=== PATIENT | female | born 1995 | race Caucasian/White ===

== ENCOUNTER 2019-04-25 17:59 | Inpatient (IN) ==
[2019-04-25] MEDS ORDERED: KETOROLAC TROMETHAMINE 15 MG/ML VIAL IV STA (18:05)
[2019-04-25] MEDS ORDERED: HYDROmorphone INJ 0.5 MG/0.5 ML SYR IV STA (18:05)
[2019-04-25] MEDS ORDERED: SODIUM CHLORIDE 0.9% 1000ML 2,000 ML IV ONE (18:05)
[2019-04-25] MEDS ORDERED: GI COCKTAIL ED USE PO ONE (18:05)
[2019-04-25] MEDS ORDERED: HYDROmorphone INJ 1 MG/ML SYRINGE ONE (18:21)
[2019-04-25 18:28] LABS: Basophils # (auto) 0.03 K/uL (0-0.2); Basophils % (auto) 0.4 %; Eosinophils # (auto) 0.14 K/uL (0-0.5); Eosinophils % (auto) 1.7 %; Hemoglobin 13.1 g/dL (12.0-16.0); Immature Granulocytes # (auto) 0.02 K/uL (0.00-0.02); Immature Granulocytes % (auto) 0.2 %; Lymphocytes # (auto) 1.43 K/uL (1.2-3.4); Lymphocytes % (auto) 16.9 %; Mean Corpuscular Hemoglobin 29.3 pg (25-34); Mean Corpuscular Hgb Conc 33.6 g/dL (32-36); Mean Corpuscular Volume 87.2 fL (80-100); Mean Platelet Volume 9.9 fL (7.4-10.4); Monocytes # (auto) 0.87 K/uL (0.11-0.59); Monocytes % (auto) 10.3 %; Neutrophils # (auto) 5.96 K/uL (1.4-6.5); Neutrophils % (auto) 70.5 %; Platelet Count 213 K/uL (130-400); RDW Coefficient of Variation 14.2 % (11.5-14.5); RDW Standard Deviation 45.5 fL (36.4-46.3); Red Blood Count 4.47 M/uL (4.2-5.4); White Blood Count 8.45 K/uL (4.8-10.8)
[2019-04-25 18:37] LABS: iSTAT Creatinine 0.6 mg/dl (0.6-1.3); iSTAT Hemoglobin 13.3 g/dl (12.0-16.0); iSTAT Ionized Calcium 1.15 mmol/l (1.12-1.32); iSTAT Potassium 3.7 mEq/L (3.3-5.0)
--- NOTE | 2019-04-25 18:42 | XRay Report ---
XR chest 1V portable CLINICAL HISTORY: Pain, radiating to the abdomen COMPARISON STUDY: No previous studies for comparison. FINDINGS: The cardiac and mediastinal contours are normal. There is no evidence of focal pulmonary co nsolidation. There is no evidence of failure. No pleural effusions are visualized.[No free intraperit clay[place] air is visualized IMPRESSION: No active disease in the chest. Electronically signed by: Bhaskar Harry M.D. 04/25/2019 6:41 PM
[2019-04-25 18:44] LABS: Albumin Level 3.4 gm/dl (3.4-5.0); BUN Creatinine Ratio 8.7 (10-20); Calcium 8.9 mg/dl (8.5-10.1); Est GFR (African American) 135.5; Est GFR (Non-African American) 116.9; Potassium 3.7 mmol/L (3.5-5.1)
[2019-04-25 18:47] LABS: Albumin Globulin Ratio 0.8 (0.9-2); Bilirubin,Total 0.2 mg/dl (0.2-1); Globulin 4.5 gm/dl (2.5-4.0); Total Protein 7.9 gm/dl (6.4-8.2)
[2019-04-25] MEDS ORDERED: IOVERSOL 100ml IV PRN (18:59)
--- NOTE | 2019-04-25 19:08 | CT Scan Report ---
CT abd pelvis IV con only CLINICAL HISTORY: Severe right-sided abdominal pain. COMPARISON STUDY: None. TECHNIQUE: Patient was scanned in a dynamic helical fashion during intravenous administration of 90 c c of Optiray 320 A dose lowering technique was utilized adhering to the principles of ALARA. CT DOSE: 747.89 mGy.cm FINDINGS: Lower chest: The heart is normal in size and configuration, without pericardial effusion. The lung ba ses and pleural spaces are clear. Liver: The contrast-enhanced liver is normal in size, contour, and attenuation. There is no intrahepa tic biliary ductal dilatation. The hepatic veins and portal veins are patent. Gallbladder: Unremarkable. Spleen: Normal in size and attenuation. Pancreas: Unremarkable. Adrenal glands: Unremarkable. Kidneys: There is symmetric renal cortical enhancement. The kidneys are normal in size without hydron ephrosis. Bowel: There is no evidence of acute diverticulitis. The appendix is surgically absent. There are bor derline dilated jejunal loops with a small bowel feces sign. A discrete transition zone is not visual ized however the mid small bowel is of normal caliber. The findings could represent ileus or low-grad e partial obstruction. Peritoneum: There is trace free pelvic fluid. There is no free intraperitoneal air. Vasculature: The abdominal aorta is normal in course and caliber. Adenopathy: None. Pelvic viscera: The right ovary appears mildly enlarged. Skeletal structures: No destructive osseous lesions are seen. IMPRESSION: 1. Mildly dilated proximal small bowel loops. A discrete transition is not identified. Diagnostic con siderations include an ileus or low-grade partial small bowel obstruction. Clinical follow-up is advo cated 2. Surgically absent appendix 3. Mild right ovarian enlargement Electronically signed by: Bhaskar Harry M.D. 04/25/2019 7:07 PM
[2019-04-25 19:18] LABS: Pregnancy Test, Serum Negative (Negative)
[2019-04-25] MEDS ORDERED: PIPERACILLIN/TAZOBACTAM 4.5 GM/120 ML BAG IV ONE (19:22)
[2019-04-25] MEDS ORDERED: PIPERACILL/TAZOBAC CONSULT ACTIVE PRN (19:22)
--- NOTE | 2019-04-25 19:44 | Emergency Department Note ---
Entered by German Hoffmann acting as a scribe for Delfin Edwards DO History of Present Illness General Chief complaint: Abdominal Pain Stated complaint: AB PAIN Time Seen by Provider: 04/25/19 18:00 Source: patient History of Present Illness Onset (ago): day(s) 2 Location: abdomen (right-sided) Pain Consistency: + other (worsening) Quality: + sharp Relieved By: not by none Exacerbated By: not by none Associated symptoms: + denies other symptoms (burning urination and vaginal bleeding), + cough, + shortness of breath and + other (runny nose) The patient is a 23 year-old white F w/ no PMHx who presents to the ED w/ CC of worsening right-sided abdominal pain beginning 2 days ago. The patient states that she was in the [facility] ED, 2 days ago, for her current symptoms. She describes her abdominal pain as sharp. She denies that anything makes her pain better or worse. She notes that at [facility], she was given pain medications and had a CAT scan an US done. She adds that the US and CAT scan were negative. She states that the reason she decided to come to [facility] today is due to not wanting to go back to [facility]. She notes that she is currently experiencing shortness of breath, a runny nose, and a cough. She denies experiencing burning urination and vaginal bleeding. She adds that her last menstrual cycle was 1 month ago due to previously being on BCP. She notes that she had a bowel movement last night. She denies any recent falls or trauma. Home Medications Home Medications Medication Instructions Recorded Confirmed Type dicyclomine 10 mg PO QID 04/25/19 04/25/19 History famotidine 20 mg PO BID 04/25/19 04/25/19 History Allergies Allergy/AdvReac Type Severity Reaction Status Date / Time No Known Allergies Allergy Unverified 04/25/19 18:58 Past Med/Surg History Social History Preferred Language: Upper Sorbian Communication Ability: Effective Naturopathic Physician Required: No Beliefs That Will Affect Care: None Current Living Situation: Parent Other Information That Helps Us Care for You: No Feels Safe at Home: Yes Safety Concerns: Feels Safe At This Time Smoking Status: Current every day smoker Tobacco Type: cigarettes and e- cigarettes ; Do You Dip or Chew Tobacco: No ; Second Hand Exposure: Yes ; Tobacco Cessation Education Requested by Patient: No Hx Alcohol Use: Yes Alcohol type: beer and hard liquor Review of Systems See HPI for pertinent positives & negatives. and A total of 10 systems reviewed and were otherwise negative Physical Exam Vital Signs Vital Signs - 24 hr 04/25/19 18:00 Temperature 38.0 C H Temperature Source Oral Sepsis Recent Fever Within 48 Hours No Sepsis New/Unexplained Change in Mental Status No Sepsis Action Taken by Nursing No Action Required Pulse Rate 93 H Pulse Rhythm Regular Respiratory Rate 20 Respiratory Effort / Characteristics Non-Labored Respiratory Depth Normal Respiratory Pattern Regular Blood Pressure 119/90 Blood Pressure Mean 99 Pulse Oximetry 97 Oxygen Delivery Method Room Air GENERAL: Sitting up in bed, in moderate distress, holding right mid abdomen. EYE EXAM: normal conjunctiva OROPHARYNX: no exudate, no erythema, lips, buccal mucosa, and tongue normal and mucous membranes are moist NECK: supple, no nuchal rigidity, no adenopathy, non-tender LUNGS: Clear to auscultation. Normal chest wall mechanics HEART: no murmurs, S1 normal and S2 normal ABDOMEN: abdomen soft, tenderness in right mid abdomen even with light touch, normo-active bowel sounds, no masses, no rebound or guarding. BACK: Back is symmetrical on inspection and there is no deformity, no midline tenderness, no CVA tenderness. SKIN: no rashes and no bruising UPPER EXTREMITIES: upper extremities are grossly normal. LOWER EXTREMITIES: No pitting edema. NEURO EXAM: Normal sensorium, cranial nerves II-XII grossly intact, normal speech, no gross weakness of arms, no gross weakness of legs. Course ED COURSE: Vital signs were reviewed and showed febrile and tachycardia. The patients medical record was reviewed The above diagnostic studies were performed and reviewed. ED treatments and interventions as stated above. 1800: The patient was evaluated in room C11B. A complete history and physical examination was performed. 1914: Upon reevaluation, the patient is doing no better. I discussed my findings with the patient and she understands and agrees with the treatment plan. 1920: I reviewed the patient's case with Dr. Colby Reed, General [place]. He states that he will follow up with the patient. 1927: I reviewed the patient's case with Dr. Michael Pillai, [facility] Hospitalist. He will evaluate the patient for further management. Based on the patients age, coexisting illnesses, exam and lab findings the decision to treat as an inpatient was made. The patient remained stable while under my care. The patient will be evaluated for further management. Consultations Consultation #1: I reviewed the patient's case with Dr. Colby Reed, General [place]. He states that he will follow up with the patient. Time: 19:21 Consultation #2: I reviewed the patient's case with Dr. Michael Pillai, [facility] Hospitalist. He will evaluate the patient for further management. Time: 19:28 Administered Medications Acetaminophen (Tylenol) 650 mg PO Q4H PRN PRN Reason: pain/fever Stop: 05/25/19 22:04 Last Admin: 04/26/19 00:51 Dose: 650 mg Documented by: [id number] Diclofenac Sodium (Voltaren 1% Top) 1 appln EXT BID PRN PRN Reason: Pain Stop: 05/25/19 20:59 Last Admin: 04/25/19 20:27 Dose: 1 appln Documented by: [id number] Lactated Ringer's (Lr) 1,000 mls @ 120 mls/hr IV .Q8H20M LILLIANA Stop: 05/25/19 22:04 Last Admin: 04/25/19 22:24 Dose: 120 mls/hr Documented by: [id number] Ketorolac Tromethamine (Toradol) 15 mg IV Q6H PRN PRN Reason: Pain Stop: 04/30/19 22:04 Last Admin: 04/25/19 22:41 Dose: 15 mg Documented by: [id number] Valacyclovir HCl (Valtrex) 1,000 mg PO TID LILLIANA Stop: 05/02/19 22:04 Last Admin: 04/25/19 23:48 Dose: 1,000 mg Documented by: [id number] Discontinued Medications Al Hydrox/Mg Hydrox/Simethicone () 1 dose PO ONE ONE Stop: 04/25/19 18:06 Last Admin: 04/25/19 18:27 Dose: 1 dose Documented by: [id number] Hydromorphone HCl (Dilaudid) 1 mg IV NOW STA Stop: 04/25/19 18:06 Last Admin: 04/25/19 18:28 Dose: Not Given Documented by: [id number] Hydromorphone HCl (Dilaudid) Confirm Administered Dose 1 mg .ROUTE .STK-MED ONE Stop: 04/25/19 18:22 Last Admin: 04/25/19 18:27 Dose: 1 mg Documented by: [id number] Sodium Chloride (Nss 1000ml) 2,000 mls @ 999 mls/hr IV .Q2H1M ONE Stop: 04/25/19 20:05 Last Infusion: 04/25/19 22:14 Dose: 0 mls/hr Documented by: [id number] Admin: 04/25/19 18:27 Dose: 999 mls/hr Documented by: [id number] Piperacillin Sod/Tazobactam Sod (Zosyn) 4.5 gm in 120 mls @ 240 mls/hr IV NOW ONE Stop: 04/25/19 19:51 Last Infusion: 04/25/19 20:57 Dose: 0 mls/hr Documented by: [id number] Admin: 04/25/19 20:27 Dose: 240 mls/hr Documented by: [id number] Ioversol (Optiray 320 100ml) 90 ml IV ONCE PRN PRN Reason: Interaction Checking Stop: 04/29/19 18:58 Last Admin: 04/25/19 19:00 Dose: 90 ml Documented by: [id number] Ketorolac Tromethamine (Toradol) 15 mg IV NOW STA Stop: 04/25/19 18:06 Last Admin: 04/25/19 18:27 Dose: 15 mg Documented by: [id number] Medical Decision Making Differential Diagnosis Differential diagnoses includes but is not limited to gastritis, peptic ulcer disease, GERD, gallbladder disease, pancreatitis, small bowel obstruction, acute coronary syndrome, pericarditis, ischemic bowel, irritable bowel disease, irritable bowel syndrome, appendicitis, diverticulitis, malignancy, hernia, urinary tract infection, torsion, /ectopic (if female), perforation, trauma, infectious. Medical Records Attestation: I reviewed the patient's medical records. Home Medications Current Medication List: was personally reviewed by me Laboratory Data Attestation: I reviewed the patient's lab results. Result diagrams: 04/25/19 18:20 04/25/19 18:20 Lab Results 04/25/19 04/25/19 04/25/19 Range/Units 18:20 18:20 18:25 WBC 8.45 (4.8-10.8) K/uL RBC 4.47 (4.2-5.4) M/uL Hgb 13.1 (12.0-16.0) g/dL POC Hgb 13.3 (12.0-16.0) g/dl Hct 39.0 (37-47) % POC Hct 39 (37-47) % MCV 87.2 (80-100) fL MCH 29.3 (25-34) pg MCHC 33.6 (32-36) g/dL RDW Std Deviation 45.5 (36.4-46.3) fL RDW Coeff of Kamila 14.2 (11.5-14.5) % Plt Count 213 (130-400) K/uL MPV 9.9 (7.4-10.4) fL Immature Gran % (Auto) 0.2 % Neut % (Auto) 70.5 % Lymph % (Auto) 16.9 % [place] % (Auto) 10.3 % Eos % (Auto) 1.7 % Baso % (Auto) 0.4 % Immature Gran # (Auto) 0.02 (0.00-0.02) K/uL Neut # (Auto) 5.96 (1.4-6.5) K/uL Lymph # (Auto) 1.43 (1.2-3.4) K/uL [place] # (Auto) 0.87 H (0.11-0.59) K/uL Eos # (Auto) 0.14 (0-0.5) K/uL Baso # (Auto) 0.03 (0-0.2) K/uL POC Sodium 138 (135-144) mEq/L Sodium 138 (136-145) mmol/L POC Potassium 3.7 (3.3-5.0) mEq/L Potassium 3.7 (3.5-5.1) mmol/L POC Chloride 103 (101-112) mEq/L Chloride 108 H (98-107) mmol/L Carbon Dioxide 24 (21-32) mmol/L POC Total CO2 22 L (24-31) mEq/l Anion Gap 6.0 (3-11) POC Anion Gap 18.0 (16-25) mmol/L POC BUN 4 L (7-18) mg/dl BUN 6 L (7-18) mg/dl Creatinine 0.73 (0.6-1.2) mg/dl POC Creatinine 0.6 (0.6-1.3) mg/dl Est Cr Clr Drug Dosing 125.0 ml/min Est GFR ( Amer) 135.5 Est GFR (Non-Af Amer) 116.9 BUN/Creatinine Ratio 8.7 L (10-20) Glucose 107 H (70-99) mg/dl POC Glucose (other) 108 H (70-99) mg/dl Calcium 8.9 (8.5-10.1) mg/dl POC Ioniz Calcium [place] 1.15 (1.12-1.32) mmol/l Total Bilirubin 0.2 (0.2-1) mg/dl AST 19 (15-37) U/L ALT 24 (12-78) U/L Alkaline Phosphatase 97 (45-117) U/L Total Protein 7.9 (6.4-8.2) gm/dl Albumin 3.4 (3.4-5.0) gm/dl Globulin 4.5 H (2.5-4.0) gm/dl Albumin/Globulin Ratio 0.8 L (0.9-2) Lipase 108 (73-393) U/L HCG, Qual (Negative) Urine Color Urine Appearance (Clear) Urine pH (4.5-7.5) Ur Specific [place] (1.000-1.030) Urine Protein (Negative) Urine Glucose (UA) (Negative) Urine Ketones (Negative) Urine Blood (Negative) Urine Nitrite (Negative) Urine Bilirubin (Negative) Urine Urobilinogen (Negative) Ur Leukocyte Esterase (Negative) 04/25/19 04/25/19 Range/Units 18:25 19:40 WBC (4.8-10.8) K/uL RBC (4.2-5.4) M/uL Hgb (12.0-16.0) g/dL POC Hgb (12.0-16.0) g/dl Hct (37-47) % POC Hct (37-47) % MCV (80-100) fL MCH (25-34) pg MCHC (32-36) g/dL RDW Std Deviation (36.4-46.3) fL RDW Coeff of Kamila (11.5-14.5) % Plt Count (130-400) K/uL MPV (7.4-10.4) fL Immature Gran % (Auto) % Neut % (Auto) % Lymph % (Auto) % [place] % (Auto) % Eos % (Auto) % Baso % (Auto) % Immature Gran # (Auto) (0.00-0.02) K/uL Neut # (Auto) (1.4-6.5) K/uL Lymph # (Auto) (1.2-3.4) K/uL [place] # (Auto) (0.11-0.59) K/uL Eos # (Auto) (0-0.5) K/uL Baso # (Auto) (0-0.2) K/uL POC Sodium (135-144) mEq/L Sodium (136-145) mmol/L POC Potassium (3.3-5.0) mEq/L Potassium (3.5-5.1) mmol/L POC Chloride (101-112) mEq/L Chloride (98-107) mmol/L Carbon Dioxide (21-32) mmol/L POC Total CO2 (24-31) mEq/l Anion Gap (3-11) POC Anion Gap (16-25) mmol/L POC BUN (7-18) mg/dl BUN (7-18) mg/dl Creatinine (0.6-1.2) mg/dl POC Creatinine (0.6-1.3) mg/dl Est Cr Clr Drug Dosing ml/min Est GFR ( Amer) Est GFR (Non-Af Amer) BUN/Creatinine Ratio (10-20) Glucose (70-99) mg/dl POC Glucose (other) (70-99) mg/dl Calcium (8.5-10.1) mg/dl POC Ioniz Calcium [place] (1.12-1.32) mmol/l Total Bilirubin (0.2-1) mg/dl AST (15-37) U/L ALT (12-78) U/L Alkaline Phosphatase (45-117) U/L Total Protein (6.4-8.2) gm/dl Albumin (3.4-5.0) gm/dl Globulin (2.5-4.0) gm/dl Albumin/Globulin Ratio (0.9-2) Lipase (73-393) U/L HCG, Qual Negative (Negative) Urine Color Yellow Urine Appearance Clear (Clear) Urine pH 7.0 (4.5-7.5) Ur Specific [place] <= 1.005 (1.000-1.030) Urine Protein Negative (Negative) Urine Glucose (UA) Negative (Negative) Urine Ketones Negative (Negative) Urine Blood Negative (Negative) Urine Nitrite Negative (Negative) Urine Bilirubin Negative (Negative) Urine Urobilinogen Negative (Negative) Ur Leukocyte Esterase Negative (Negative) Imaging Data Radiologist's Impression: Radiology results as stated below per my review and the radiologist's interpretation: CT abd pelvis IV con only CLINICAL HISTORY: Severe right-sided abdominal pain. COMPARISON STUDY: None. TECHNIQUE: Patient was scanned in a dynamic helical fashion during intravenous administration of 90 cc of Optiray 320 A dose lowering technique was utilized adhering to the principles of ALARA. CT DOSE: 747.89 mGy.cm FINDINGS: Lower chest: The heart is normal in size and configuration, without pericardial effusion. The lung bases and pleural spaces are clear. Liver: The contrast-enhanced liver is normal in size, contour, and attenuation. There is no intrahepatic biliary ductal dilatation. The hepatic veins and portal veins are patent. Gallbladder: Unremarkable. Spleen: Normal in size and attenuation. Pancreas: Unremarkable. Adrenal glands: Unremarkable. Kidneys: There is symmetric renal cortical enhancement. The kidneys are normal in size without hydronephrosis. Bowel: There is no evidence of acute diverticulitis. The appendix is surgically absent. There are borderline dilated jejunal loops with a small bowel feces sign. A discrete transition zone is not visualized however the mid small bowel is of normal caliber. The findings could represent ileus or low-grade partial o bstruction. Peritoneum: There is trace free pelvic fluid. There is no free intraperitoneal air. Vasculature: The abdominal aorta is normal in course and caliber. Adenopathy: None. Pelvic viscera: The right ovary appears mildly enlarged. Skeletal structures: No destructive osseous lesions are seen. IMPRESSION: 1. Mildly dilated proximal small bowel loops. A discrete transition is not identified. Diagnostic considerations include an ileus or low-grade partial small bowel obstruction. Clinical follow-up is advocated 2. Surgically absent appendix 3. Mild right ovarian enlargement Electronically signed by: Bhaskar Harry M.D. 04/25/2019 7:07 PM XR chest 1V portable CLINICAL HISTORY: Pain, radiating to the abdomen COMPARISON STUDY: No previous studies for comparison. FINDINGS: The cardiac and mediastinal contours are normal. There is no evidence of focal pulmonary consolidation. There is no evidence of failure. No pleural effusions are visualized.[No free intraperitoneal air is visualized IMPRESSION: No active disease in the chest. Electronically signed by: Bhaskar Harry M.D. 04/25/2019 6:41 PM ECG Data Attestation: I personally reviewed and interpreted this ECG as follows: Indication: abdominal pain Rate (beats per minute): 101 Rhythm: sinus tachycardia Findings: + other (normal axis, poor baseline); no PVC Blood Pressure Blood Pressure Findings: Elevated blood pressure Blood Pressure Disposition: further management by hospitalist MDM Narrative Patient is a 23-year-old female who presents the ER for right upper quadrant abdominal pain which is been present for the past 2 days. She notes it has been gradually worsening. IV was established blood work was obtained and showed no significant leukocytosis or anemia. BMP with LFTs bilirubin and lipase was unremarkable. hCG was negative. CT abdomen pelvis shows questionable early small bowel obstruction. Uncertain if this is small bowel versus gas troenteritis versus cholecystitis although unlikely with a negative CT. Patient was given IV fluids and IV narcotics along with IV Zofran. She had significant improvement of her pain. Patient was discussed with hospitalist and general surgery. Patient and family were updated bedside. Patient was given a dose of IV antibiotics prophylactically with a fever with questionable small bowel obstruction and admitted for further work-up. Impression & Plan SBO (small bowel obstruction), Abdominal pain, Fever Discharge Plan Visit Data *Final* Discharge Date/Time: 04/25/19 21:39 Chief Complaint: Abdominal Pain Stated Complaint: AB PAIN ED Provider: Delfin Edwards Discharge Problem: SBO (small bowel obstruction), Abdominal pain, Fever Patient Disposition: Admitted As Inpatient Discharge Instructions Interventions: ED Discharge Assessment Last Done: 04/25/19 21:39 Discharge Problem: Abdominal pain Qualifiers: Abdominal location: unspecified location Qualified Code(s): R10.9 - Unspecified abdominal pain Fever Qualifiers: Fever type: unspecified Qualified Code(s): R50.9 - Fever, unspecified The scribe's documentation has been prepared under my direction and personally reviewed by me in its entirety. I confirm that the note above accurately reflects all work, treatment, procedures, and medical decision making performed by me.
[2019-04-25] MEDS ORDERED: DICLOFENAC SOD 1% GEL 100 GM TUBE EXT PRN (19:51)
--- NOTE | 2019-04-25 20:01 | History & Physical Report ---
Date of Service April 25, 2019 Assessment & Plan (1) Abdominal pain: Jessica is a 23-year-old female with no significant past medical history who presented to [facility] due to a 5-day history of intermittent abdominal pain. ED Course: Received 2 L normal saline bolus, 15 mg IV Toradol, 1 mg IV Dilaudid, GI cocktail, and 4.5 g of IV Zosyn -admit to med/surg -Records from [facility] reviewed (from ER visit for the same complaint on 04/23/19). Pt had a normal CT of abdomen and pelvis, normal CTA and normal right upper quadrant ultrasound. Patient was discharged home with Bentyl and Pepcid, which she states did not improve her pain -CT abdomen & pelvis today revealed dilated proximal small bowel loops consider ileus or low-grade partial small bowel obstruction -> unlikely to be the cause of her pain, given the patient has had no vomiting or changes in bowel habit -> will keep NPO except sips/chips and meds until definitive cause of abdominal pain has been identified -> Maintenance LR at 120mls/hr ordered while NPO -> continue to monitor -Abdomen is exquisitely tender to light touch. Examination not consistent with surgical abdomen. -Normal laboratory results, including normal white cell count, normal electrolytes, liver function tests and lipase. Negative test. -Ultrasound of gallbladder was normal -if patient has persistent right upper quadrant pain, can consider HIDA scan. Will hold off on ordering this for now given normal LFTs and negative Byrne sign -Suspect abdominal pain is related to shingles precipitated by viral URI, given hyperesthesia of right side of abdomen -start Valtrex 1000mg tid x 7 days -pain regimen to include voltaren gel to the affected area, prn tylenol and toradol -monitor for rash Fever -Febrile to 38 C in the emergency department, all other vitals are within normal limits -Normal white cell count, normal chest x-ray, UA pending but no urinary symptoms, CT abdomen pelvis without any infectious causes -Suspect fever related to viral URI vs. Shingles -Patient received 1 dose of IV Zosyn in the emergency department, will hold off on further antibiotic administration Tobacco Abuse -encourage smoking cessation CODE STATUS: Full DVT prophylaxis: Low risk, encourage ambulation Disposition: Admitted to med/surg (2) Fever: History of Present Illness Chief Complaint: Abdominal Pain Primary Care Provider: NO PCP Jessica is a 23-year-old female with no significant past medical history who presented to [facility] due to a 5-day history of intermittent abdominal pain. She states that this pain started suddenly Saturday night around 9 PM, when she bent down to pickle processor her cell phone from the floor. She states that since then, she has had waves of pain in the right side of abdomen. She describes the pain as sharp, 10 out of 10 in intensity, so severe that it results in her feeling like she has chills. She also becomes nauseous and dizzy with the pain. She states that she can have 3 to 4 minutes of relief between episodes of pain. She also endorses URI symptoms that began the same day. She states that she has nasal congestion, a productive cough, and generalized myalgias. Yesterday, she states that she did not have any pain, however it returned last night. She states that an episode of coughing brought it on. She denies having any history of this type of pain in the past. Prior to Saturday, she had been feeling well. She denies any episodes of vomiting. She states that her last bowel movement was last night, and was normal. She has had chickenpox in the past. She is up-to-date with her immunizations. Her mother has had shingles in the past, however this was 11 years ago. She has had no contact with any person with shingles. Past medical history: Nil of note Past surgical history: Appendectomy, due to ruptured appendix Medications: vitamin Allergies: No known drug allergies Family history: Mother w/hx of cholecystectomy Social history: Has been smoking up to half a pack of cigarettes a day since age 17. Drinks alcohol occasionally, last drink was 2 beers last night. No recent alcohol binges. No recreational drug use. Allergies Allergy/AdvReac Type Severity Reaction Status Date / Time No Known Allergies Allergy Unverified 04/25/19 18:58 Home Medications Home Medications Medication Instructions Recorded Confirmed Type dicyclomine 10 mg PO QID 04/25/19 04/25/19 History famotidine 20 mg PO BID 04/25/19 04/25/19 History Past Med/Surg History Medical History Migraine No pertinent past medical history Family History Other No significant family history Social History Preferred Language: Martiniquais Communication Ability: Effective Transitional Care Manager Required: No Beliefs That Will Affect Care: None Current Living Situation: Parent Other Information That Helps Us Care for You: No Feels Safe at Home: Yes Safety Concerns: Feels Safe At This Time Smoking Status: Current every day smoker Tobacco Type: cigarettes and e- cigarettes ; Do You Dip or Chew Tobacco: No ; Second Hand Exposure: Yes ; Tobacco Cessation Education Requested by Patient: No Hx Alcohol Use: Yes Alcohol type: beer and hard liquor Review of Systems Constitutional: + fever, + chills, + body aches, + fatigue and + anorexia Ear, Nose, Mouth, Throat: + dizziness and + nasal congestion; no ear pain and no sore throat Respiratory: + cough and + chest congestion; no dyspnea and no wheezing Cardiovascular: no chest pain, no dyspnea on exertion, no palpitations, no edema and no calf pain Gastrointestinal: + abdominal pain and + nausea; no vomiting and no change in bowel habits Genitourinary: no dysuria, no urinary frequency and no urinary urgency Musculoskeletal: + body aches; no back pain, no neck pain and no joint pain Integumentary: no rash, no lesions and no change in skin color Physical Exam Constitutional: WD/WN, vitals as above cooperative and + in distress (Appears tearful due to pain) Eyes: PERRL, conjunctivae normal, anicteric sclerae Respiratory: normal respiratory effort, lungs clear to auscultation Cardiovascular: RRR, no murmur, no edema Gastrointestinal (Abdomen): Inspection/Auscultation: abdomen normal to inspection Percussion/Palpation: + abdomen tender (Tender to palpation of the right side of abdomen, extremely tender, even with light touch) and abdomen soft; no guarding and abdomen not rigid Abdomen is warm to touch, in a bandlike distribution over the right side of the abdomen. No erythema of the skin, or rashes noted. Skin: no rashes, warm and dry Neurologic: 5/5 power in upper and lower extremities Results & Data Vital Signs (Past 12 Hours) Vital Signs Temp Pulse Resp BP Pulse Ox 04/25/19 18:00 38.0 C H 93 H 20 119/90 97 Supervising Physician Co-Signing Physician Notes Attending addendum: I have physically seen this patient, have supervised the medical residents activities, and agree with the H&P unless as otherwise noted. Assessment and Plan: Right upper quadrant pain- Hyperesthesia. Imaging studies including CT and ultrasound negative for gallbladder dysfunction. Symptoms more suggestive of pre-herpetic neuralgia. Trial of Voltaren gel topically. Valtrex 1000 mg p.o. 3 times daily x7 days. Monitor for rash. Toradol 30 mg IV every 6 hours as needed for moderate pain. Do not see any further need for antibiotics. Patient did receive Zosyn x1 in the ED. Remainder of orders and notations as noted. PG Care Time/CCT Total # of Minutes Spent Total Time Spent with Patient: Total time spent is greater than 50% in coordination of care (as documented) at patient's floor/unit and/or counseling patient: Resident Activity Tracking Resident Involvement: Resident Care Provided Care Provided: Adult Hospital Medicine (1) Fever Fever type: unspecified Qualified Code(s): R50.9 - Fever, unspecified (2) Abdominal pain Abdominal location: unspecified location Qualified Code(s): R10.9 - Unspecified abdominal pain
--- NOTE | 2019-04-25 20:26 | Ultrasound Report ---
Biliary ultrasound CLINICAL HISTORY: ruq abd pain COMPARISON STUDY: CT scan dated 04/25/2009 FINDINGS: The liver appears sonographically normal. The pancreas appears normal as visualized. A port ion of the head is obscured due to gas shadowing. The gallbladder appears sonographically normal. The re is no ductal dilatation. The common bile duct measures 2 mm. There is no right-sided hydronephrosi s. IMPRESSION: Normal biliary ultrasound Electronically signed by: Bhaskar Harry M.D. 04/25/2019 8:25 PM
[2019-04-25 21:26] LABS: Appearance Urine Clear (Clear); Bilirubin Urine Negative (Negative); Blood Urine Negative (Negative); Color Urine Yellow; Glucose Urine UA Negative (Negative); Ketones Urine Negative (Negative); Leukocyte Esterase Urine Negative (Negative); Nitrite Urine Negative (Negative); Protein Urine Negative (Negative); Specific Gravity Urine <= 1.005 (1.000-1.030); Urobilinogen Urine Negative (Negative)
[2019-04-25] MEDS ORDERED: ONDANSETRON INJ 2 MG/ML 2 ML VIAL IV PRN (22:05)
[2019-04-25] MEDS: LACTATED RINGER'S 1,000 ML IV SCH (22:24)
[2019-04-25] MEDS: KETOROLAC TROMETHAMINE 15 MG/ML VIAL IV PRN (22:41)
[2019-04-25] MEDS: VALACYCLOVIR HCL 500 MG TABLET PO SCH (23:48)
[2019-04-26] MEDS: ACETAMINOPHEN 325 MG TAB PO PRN ×2 (00:51→13:26)
[2019-04-26] MEDS: KETOROLAC TROMETHAMINE 15 MG/ML VIAL IV PRN ×3 (05:22→20:53)
[2019-04-26] MEDS: LACTATED RINGER'S 1,000 ML IV SCH ×3 (06:21→23:06)
[2019-04-26] MEDS: VALACYCLOVIR HCL 500 MG TABLET PO SCH ×3 (07:17→20:51)
[2019-04-26 07:31] LABS: Basophils # (auto) 0.03 K/uL (0-0.2); Basophils % (auto) 0.5 %; Eosinophils # (auto) 0.16 K/uL (0-0.5); Eosinophils % (auto) 2.8 %; Hemoglobin 11.4 g/dL (12.0-16.0); Immature Granulocytes # (auto) 0.01 K/uL (0.00-0.02); Immature Granulocytes % (auto) 0.2 %; Lymphocytes # (auto) 1.66 K/uL (1.2-3.4); Lymphocytes % (auto) 28.6 %; Mean Corpuscular Hemoglobin 29.3 pg (25-34); Mean Corpuscular Hgb Conc 32.6 g/dL (32-36); Mean Platelet Volume 9.9 fL (7.4-10.4); Monocytes # (auto) 0.98 K/uL (0.11-0.59); Monocytes % (auto) 16.9 %; Neutrophils # (auto) 2.97 K/uL (1.4-6.5); Platelet Count 163 K/uL (130-400); RDW Coefficient of Variation 14.6 % (11.5-14.5); RDW Standard Deviation 48.4 fL (36.4-46.3); Red Blood Count 3.89 M/uL (4.2-5.4); White Blood Count 5.81 K/uL (4.8-10.8)
[2019-04-26 08:08] LABS: BUN Creatinine Ratio 9.3 (10-20); Creatinine Clr Calc Pharmacy 137.9 ml/min; Est GFR (African American) 144.6; Est GFR (Non-African American) 124.8; Potassium 3.9 mmol/L (3.5-5.1)
--- NOTE | 2019-04-26 11:36 | Family Medicine Progress Note ---
Date of Service April 26, 2019 Assessment & Plan (1) Abdominal pain: 23-year-old female was admitted on 25 April 2019 for intermittent abdominal pain. Abdominal pain, fever: Beginning around 03Sep. Multiple CT scans and a RUQ u/s only suggestive of ileus versus low-grade partial SBO, although she has not had any vomiting or constipation. Prior history of appendectomy. Briefly febrile but normal blood + urine labs. Question of early shingles (and PMH chickenpox), so was started on Valtrex 1 gm TID. However, no rash has ever been seen and the pain does not radiate into the flank. May be MSK in nature. Consult GI Mild right ovarian enlargement: As noted on her CT a/p. Admit blood hCG negative. Patient notes she may have had ovarian cyst in the past. Her lack of subjective and objective adenexal symptoms makes torsion less likely. Could consider pelvic ultrasound if symptom pattern changes. Tobacco use: Continue to encourage cessation. Code status: Full code. Diet: N.p.o. initially. DVT prophy: Lovenox. PT/OT: Deferred. Disbo: Admitted for observation to [facility]. (2) Ovarian enlargement, right: (3) Tobacco use: Supervising Physician Co-Signing Physician Notes Resident Physician Supervision Note: I independently interviewed and examined the patient and verified the cabrera history and physical, reviewed labs and image studies, discussed the case with the resident Dr. Torres and agree with the findings and care plan. Subjective Found patient resting in her bed. We reviewed her HPI events as per the H&P. She says in general over the past 5-6 days she will have a few minutes worth of near resolution of her pain for just to return quickly. For example, this morning she notes episodes of severe, stabbing pain in the right upper quadrant that is non-radiating. Says she feels little nauseous with this but has never had any emesis. Continues to have normal non-bloody bowel movements. Last period was about a month ago but that she has irregular periods. Denies any current vaginal bleeding or pelvic pain. She notes the Toradol and Tylenol here seems to help a little bit. No noted overnight acute events or new symptomatic concerns. Review of Systems Review of Systems: ROS per HPI. Physical Exam Physical Exam: General Appearance: Awake, alert & oriented, appears generally uncomfortable particularly with any movement, but does not appear in immediate distress. CV: +S1S2 regular bradycardia, no murmur. Pulm: Clear to auscultation throughout. Abdomen: +BS, soft, non-distended. Quite focal tenderness in the right upper quadrant, less so epigastrically. No tenderness in the bilateral lower quadrants or adnexal regions. Extremities: No pedal edema or calf tenderness. Moving all extremities naturally and easily. Neuro: No gross neuro deficits. Results & Data Vital Signs (Past 12 Hours) Vital Signs Temp Pulse Resp BP BP Pulse Ox 04/26/19 07:28 36.5 C 52 L 18 110/77 96 04/26/19 03:07 36.5 C 42 L 19 96 04/26/19 00:55 119/75 04/26/19 00:40 36.5 C 71 20 83/45 L 83/50 L 98 Laboratory Results 04/26/19 04/26/19 04/25/19 Range/Units 07:04 07:04 19:40 WBC 5.81 (4.8-10.8) K/uL RBC 3.89 L (4.2-5.4) M/uL Hgb 11.4 L (12.0-16.0) g/dL POC Hgb (12.0-16.0) g/dl Hct 35.0 L (37-47) % POC Hct (37-47) % MCV 90.0 (80-100) fL MCH 29.3 (25-34) pg MCHC 32.6 (32-36) g/dL RDW Std Deviation 48.4 H (36.4-46.3) fL RDW Coeff of Kamila 14.6 H (11.5-14.5) % Plt Count 163 (130-400) K/uL MPV 9.9 (7.4-10.4) fL Immature Gran % (Auto) 0.2 % Neut % (Auto) 51.0 % Lymph % (Auto) 28.6 % Overton % (Auto) 16.9 % Eos % (Auto) 2.8 % Baso % (Auto) 0.5 % Immature Gran # (Auto) 0.01 (0.00-0.02) K/uL Neut # (Auto) 2.97 (1.4-6.5) K/uL Lymph # (Auto) 1.66 (1.2-3.4) K/uL Overton # (Auto) 0.98 H (0.11-0.59) K/uL Eos # (Auto) 0.16 (0-0.5) K/uL Baso # (Auto) 0.03 (0-0.2) K/uL POC Sodium (135-144) mEq/L Sodium 142 (136-145) mmol/L POC Potassium (3.3-5.0) mEq/L Potassium 3.9 (3.5-5.1) mmol/L POC Chloride (101-112) mEq/L Chloride 112 H (98-107) mmol/L Carbon Dioxide 28 (21-32) mmol/L POC Total CO2 (24-31) mEq/l Anion Gap 2.0 L (3-11) POC Anion Gap (16-25) mmol/L POC BUN (7-18) mg/dl BUN 6 L (7-18) mg/dl Creatinine 0.67 (0.6-1.2) mg/dl POC Creatinine (0.6-1.3) mg/dl Est Cr Clr Drug Dosing 137.9 ml/min Est GFR ( Amer) 144.6 Est GFR (Non-Af Amer) 124.8 BUN/Creatinine Ratio 9.3 L (10-20) Glucose 84 (70-99) mg/dl POC Glucose (other) (70-99) mg/dl Calcium 8.0 L (8.5-10.1) mg/dl POC Ioniz Calcium Socorro (1.12-1.32) mmol/l Total Bilirubin (0.2-1) mg/dl AST (15-37) U/L ALT (12-78) U/L Alkaline Phosphatase (45-117) U/L Total Protein (6.4-8.2) gm/dl Albumin (3.4-5.0) gm/dl Globulin (2.5-4.0) gm/dl Albumin/Globulin Ratio (0.9-2) Lipase (73-393) U/L HCG, Qual (Negative) Urine Color Yellow Urine Appearance Clear (Clear) Urine pH 7.0 (4.5-7.5) Ur Specific Remington <= 1.005 (1.000-1.030) Urine Protein Negative (Negative) Urine Glucose (UA) Negative (Negative) Urine Ketones Negative (Negative) Urine Blood Negative (Negative) Urine Nitrite Negative (Negative) Urine Bilirubin Negative (Negative) Urine Urobilinogen Negative (Negative) Ur Leukocyte Esterase Negative (Negative) 04/25/19 04/25/19 04/25/19 Range/Units 18:25 18:25 18:20 WBC (4.8-10.8) K/uL RBC (4.2-5.4) M/uL Hgb (12.0-16.0) g/dL POC Hgb 13.3 (12.0-16.0) g/dl Hct (37-47) % POC Hct 39 (37-47) % MCV (80-100) fL MCH (25-34) pg MCHC (32-36) g/dL RDW Std Deviation (36.4-46.3) fL RDW Coeff of Kamila (11.5-14.5) % Plt Count (130-400) K/uL MPV (7.4-10.4) fL Immature Gran % (Auto) % Neut % (Auto) % Lymph % (Auto) % Overton % (Auto) % Eos % (Auto) % Baso % (Auto) % Immature Gran # (Auto) (0.00-0.02) K/uL Neut # (Auto) (1.4-6.5) K/uL Lymph # (Auto) (1.2-3.4) K/uL Overton # (Auto) (0.11-0.59) K/uL Eos # (Auto) (0-0.5) K/uL Baso # (Auto) (0-0.2) K/uL POC Sodium 138 (135-144) mEq/L Sodium 138 (136-145) mmol/L POC Potassium 3.7 (3.3-5.0) mEq/L Potassium 3.7 (3.5-5.1) mmol/L POC Chloride 103 (101-112) mEq/L Chloride 108 H (98-107) mmol/L Carbon Dioxide 24 (21-32) mmol/L POC Total CO2 22 L (24-31) mEq/l Anion Gap 6.0 (3-11) POC Anion Gap 18.0 (16-25) mmol/L POC BUN 4 L (7-18) mg/dl BUN 6 L (7-18) mg/dl Creatinine 0.73 (0.6-1.2) mg/dl POC Creatinine 0.6 (0.6-1.3) mg/dl Est Cr Clr Drug Dosing 125.0 ml/min Est GFR ( Amer) 135.5 Est GFR (Non-Af Amer) 116.9 BUN/Creatinine Ratio 8.7 L (10-20) Glucose 107 H (70-99) mg/dl POC Glucose (other) 108 H (70-99) mg/dl Calcium 8.9 (8.5-10.1) mg/dl POC Ioniz Calcium Socorro 1.15 (1.12-1.32) mmol/l Total Bilirubin 0.2 (0.2-1) mg/dl AST 19 (15-37) U/L ALT 24 (12-78) U/L Alkaline Phosphatase 97 (45-117) U/L Total Protein 7.9 (6.4-8.2) gm/dl Albumin 3.4 (3.4-5.0) gm/dl Globulin 4.5 H (2.5-4.0) gm/dl Albumin/Globulin Ratio 0.8 L (0.9-2) Lipase 108 (73-393) U/L HCG, Qual Negative (Negative) Urine Color Urine Appearance (Clear) Urine pH (4.5-7.5) Ur Specific Remington (1.000-1.030) Urine Protein (Negative) Urine Glucose (UA) (Negative) Urine Ketones (Negative) Urine Blood (Negative) Urine Nitrite (Negative) Urine Bilirubin (Negative) Urine Urobilinogen (Negative) Ur Leukocyte Esterase (Negative) 04/25/19 Range/Units 18:20 WBC 8.45 (4.8-10.8) K/uL RBC 4.47 (4.2-5.4) M/uL Hgb 13.1 (12.0-16.0) g/dL POC Hgb (12.0-16.0) g/dl Hct 39.0 (37-47) % POC Hct (37-47) % MCV 87.2 (80-100) fL MCH 29.3 (25-34) pg MCHC 33.6 (32-36) g/dL RDW Std Deviation 45.5 (36.4-46.3) fL RDW Coeff of Kamila 14.2 (11.5-14.5) % Plt Count 213 (130-400) K/uL MPV 9.9 (7.4-10.4) fL Immature Gran % (Auto) 0.2 % Neut % (Auto) 70.5 % Lymph % (Auto) 16.9 % Overton % (Auto) 10.3 % Eos % (Auto) 1.7 % Baso % (Auto) 0.4 % Immature Gran # (Auto) 0.02 (0.00-0.02) K/uL Neut # (Auto) 5.96 (1.4-6.5) K/uL Lymph # (Auto) 1.43 (1.2-3.4) K/uL Overton # (Auto) 0.87 H (0.11-0.59) K/uL Eos # (Auto) 0.14 (0-0.5) K/uL Baso # (Auto) 0.03 (0-0.2) K/uL POC Sodium (135-144) mEq/L Sodium (136-145) mmol/L POC Potassium (3.3-5.0) mEq/L Potassium (3.5-5.1) mmol/L POC Chloride (101-112) mEq/L Chloride (98-107) mmol/L Carbon Dioxide (21-32) mmol/L POC Total CO2 (24-31) mEq/l Anion Gap (3-11) POC Anion Gap (16-25) mmol/L POC BUN (7-18) mg/dl BUN (7-18) mg/dl Creatinine (0.6-1.2) mg/dl POC Creatinine (0.6-1.3) mg/dl Est Cr Clr Drug Dosing ml/min Est GFR ( Amer) Est GFR (Non-Af Amer) BUN/Creatinine Ratio (10-20) Glucose (70-99) mg/dl POC Glucose (other) (70-99) mg/dl Calcium (8.5-10.1) mg/dl POC Ioniz Calcium Socorro (1.12-1.32) mmol/l Total Bilirubin (0.2-1) mg/dl AST (15-37) U/L ALT (12-78) U/L Alkaline Phosphatase (45-117) U/L Total Protein (6.4-8.2) gm/dl Albumin (3.4-5.0) gm/dl Globulin (2.5-4.0) gm/dl Albumin/Globulin Ratio (0.9-2) Lipase (73-393) U/L HCG, Qual (Negative) Urine Color Urine Appearance (Clear) Urine pH (4.5-7.5) Ur Specific Remington (1.000-1.030) Urine Protein (Negative) Urine Glucose (UA) (Negative) Urine Ketones (Negative) Urine Blood (Negative) Urine Nitrite (Negative) Urine Bilirubin (Negative) Urine Urobilinogen (Negative) Ur Leukocyte Esterase (Negative) Medications Administered Current Inpatient Medications Acetaminophen (Tylenol) 650 mg PO Q4H PRN PRN Reason: pain/fever Stop: 05/25/19 22:04 Last Admin: 04/26/19 00:51 Dose: 650 mg Documented by: Diclofenac Sodium (Voltaren 1% Top) 1 appln EXT BID PRN PRN Reason: Pain Stop: 05/25/19 20:59 Last Admin: 04/25/19 20:27 Dose: 1 appln Documented by: Enoxaparin Sodium (Lovenox) 40 mg SQ QAM [facility] Stop: 05/27/19 08:59 Lactated Ringer's (Lr) 1,000 mls @ 120 mls/hr IV .Q8H20M [facility] Stop: 05/25/19 22:04 Last Admin: 04/26/19 06:21 Dose: 120 mls/hr Documented by: Ketorolac Tromethamine (Toradol) 15 mg IV Q6H PRN PRN Reason: Pain Stop: 04/30/19 22:04 Last Admin: 04/26/19 11:08 Dose: 15 mg Documented by: Ondansetron HCl (Zofran) 4 mg IV Q6H PRN PRN Reason: Nausea Stop: 05/25/19 22:04 Valacyclovir HCl (Valtrex) 1,000 mg PO TID [facility] Stop: 05/02/19 22:04 Last Admin: 04/26/19 07:17 Dose: 1,000 mg Documented by: PG Care Time/CCT Total # of Minutes Spent Total Time Spent with Patient: Total time spent is greater than 50% in coordination of care (as documented) at patient's floor/unit and/or counseling patient: Resident Activity Tracking Resident Involvement: Resident Care Provided Care Provided: Adult Hospital Medicine (1) Abdominal pain Abdominal location: unspecified location Qualified Code(s): R10.9 - Unspecified abdominal pain
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
[2019-04-27 05:37] LABS: Basophils # (auto) 0.04 K/uL (0-0.2); Basophils % (auto) 0.7 %; Eosinophils # (auto) 0.19 K/uL (0-0.5); Eosinophils % (auto) 3.5 %; Hematocrit (blood only) 35.9 % (37-47); Hemoglobin 11.7 g/dL (12.0-16.0); Immature Granulocytes # (auto) 0.01 K/uL (0.00-0.02); Immature Granulocytes % (auto) 0.2 %; Lymphocytes # (auto) 1.86 K/uL (1.2-3.4); Lymphocytes % (auto) 34.5 %; Mean Corpuscular Hemoglobin 29.1 pg (25-34); Mean Corpuscular Hgb Conc 32.6 g/dL (32-36); Mean Corpuscular Volume 89.3 fL (80-100); Monocytes # (auto) 0.76 K/uL (0.11-0.59); Monocytes % (auto) 14.1 %; Neutrophils # (auto) 2.53 K/uL (1.4-6.5); Platelet Count 201 K/uL (130-400); RDW Coefficient of Variation 14.6 % (11.5-14.5); Red Blood Count 4.02 M/uL (4.2-5.4); White Blood Count 5.39 K/uL (4.8-10.8)
[2019-04-27 06:06] LABS: Alanine Aminotransferase 19 U/L (12-78); Albumin Level 2.6 gm/dl (3.4-5.0); Aspartate Aminotransferase 16 U/L (15-37); BUN Creatinine Ratio 7.7 (10-20); Blood Urea Nitrogen 5 mg/dl (7-18); Calcium 8.1 mg/dl (8.5-10.1); Carbon Dioxide 29 mmol/L (21-32); Chloride 109 mmol/L (98-107); Creatinine Clr Calc Pharmacy 156.6 ml/min; Est GFR (African American) > 150.0; Est GFR (Non-African American) 130.1; Glucose 73 mg/dl (70-99); Potassium 4.1 mmol/L (3.5-5.1); Sodium 143 mmol/L (136-145)
[2019-04-27 06:12] LABS: Albumin Globulin Ratio 0.7 (0.9-2); Alkaline Phosphatase 74 U/L (45-117); Bilirubin,Total 0.3 mg/dl (0.2-1); Globulin 3.9 gm/dl (2.5-4.0); Total Protein 6.5 gm/dl (6.4-8.2)
[2019-04-27] MEDS: LACTATED RINGER'S 1,000 ML IV SCH ×2 (07:48→19:46)
[2019-04-27] MEDS ORDERED: SINCALIDE 1.5 MCG in 0.9 % SODIUM CHLORIDE 100 ML IV SCH (08:45)
--- NOTE | 2019-04-27 11:05 | Nuclear Medicine Report ---
NM hepatobiliary EF HISTORY: Pain. Nausea. RUQ pain COMPARISON: None. TECHNIQUE: Immediately following the intravenous administration of 5 mCi Tc-99m Choletec, dynamic ant erior abdominal imaging pre/post 1.1 mcg of Kinevac was performed. FINDINGS: The gallbladder ejection fraction following administration of Kinevac was 16 % (normal >35%). IMPRESSION: 1. No evidence for cystic duct obstruction. 2. Gallbladder ejection fraction calculated to be 16 %. This is considered abnormally low The above report was generated using voice recognition software. It may contain grammatical, syntax or spelling errors. Electronically signed by: Alphonse Ford M.D. 04/27/2019 11:04 AM
[2019-04-27] MEDS: ENOXAPARIN INJ 40 MG/0.4 ML SYR SQ SCH (11:52)
[2019-04-27] MEDS ORDERED: PROPOFOL IV EMULSION 10 MG/ML 20 ML VIAL IV ONE (13:08)
[2019-04-27] MEDS ORDERED: LIDOCAINE HCL 2% 2 ML VIAL/AMP(20MG/ML) INFIL ONE (13:08)
--- NOTE | 2019-04-27 13:13 | Anesthesiology Consultation ---
Date of Service April 27, 2019 Obesity Smoker Abdominal Pain Assessment & Plan (1) Encounter for pre-operative examination: Chart Review Chart Review: Acceptable Risk for Surgery and Patient NOT seen in Pre Admission Testing Consults Requested none ASA ASA2 Proposed Anesthesia Anesthesia Type: MAC Risk / Benefits Reviewed With: PT / POA / Parent / Guardian, Accepts Plan and Informed Consent Obtained History Surgery Operation Date: 04/27/19 09:30 Proposed Procedures p Esophagogastroduodenoscopy Dr Amy Reyes Height/Weight Height: 5 ft 3 in Weight: 87.2 kg Allergies Allergy/AdvReac Type Severity Reaction Status Date / Time No Known Allergies Allergy Verified 04/27/19 13:09 Medications Home Medications Medication Instructions Recorded Confirmed Last Taken dicyclomine 10 mg PO QID 04/25/19 04/25/19 Unknown famotidine 20 mg PO BID 04/25/19 04/25/19 Unknown Active Medications Generic Name Dose Route Start Last Admin Trade Name Freq PRN Reason Stop Dose Admin Acetaminophen 650 mg 04/25/19 22:05 04/26/19 13:26 Tylenol PO 05/25/19 22:04 650 mg Q4H PRN Administration pain/fever Diclofenac Sodium 1 appln 04/25/19 19:51 04/25/19 20:27 Voltaren 1% Top EXT 05/25/19 20:59 1 appln BID PRN Administration Pain Enoxaparin Sodium 40 mg 04/27/19 09:00 04/27/19 11:52 Lovenox SQ 05/27/19 08:59 40 mg QAM LILLIANA Administration Lactated Ringer's 1,000 mls @ 120 mls/hr 04/25/19 22:05 04/27/19 07:48 Lr IV 05/25/19 22:04 120 mls/hr .[id number] LILLIANA Administration Ketorolac Tromethamine 15 mg 04/25/19 22:05 04/26/19 20:53 Toradol IV 04/30/19 22:04 15 mg Q6H PRN Administration Pain Valacyclovir HCl 1,000 mg 04/25/19 22:05 04/26/19 20:51 Valtrex PO 05/02/19 22:04 1,000 mg TID LILLIANA Administration NPO Date Last Intake of Fluids: 04/26/19 Time Last Intake of Fluids: 21:00 Date Last Intake of Solids: 04/26/19 Time Last Intake of Solids: 21:00 Past Medical History Medical History Migraine No pertinent past medical history Exercise / Class Metabolic Activity II 4-5 Yardwork/Stairs/Walk up hill Past Family History Family History Other No significant family history Past Anesthesia History No Hx of Anesthesia Complications and No Family Hx of Anesthesia Complications History of PONV No Hx of PONV and No Hx of Motion Sickness Social History Smoking Status: Current every day smoker tobacco type: cigarettes and e-cigarettes Do You Dip or Chew Tobacco: No Hx Alcohol Use: Yes Alcohol type: beer and hard liquor alcohol intake frequency: a few times a week substance use type: does not use Physical Exam Vital Signs Last Vital Signs Temp 37.0 C 04/27/19 13:09 Pulse 58 L 04/27/19 13:09 Resp 16 04/27/19 13:09 BP 117/49 L 04/27/19 13:09 Pulse Ox 96 04/27/19 13:09 ENMT Mouth: no dentition abnormality Thyromental Distance: > or= 3.5 Finger Breadths Mallampati Class: II Neck normal visual inspection Respiratory normal respiratory effort Auscultation: lungs clear to auscultation bilaterally Cardiovascular Rate/Rhythm: regular rate and regular rhythm Psychiatric Orientation: alert Testing Laboratory Results 04/27/19 04:51 04/27/19 04:51 Urine Color Yellow 04/25/19 19:40 Urine Appearance Clear (Clear) 04/25/19 19:40 Urine pH 7.0 (4.5-7.5) 04/25/19 19:40 Ur Specific [place] <= 1.005 (1.000-1.030) 04/25/19 19:40 Urine Protein Negative (Negative) 04/25/19 19:40 Urine Glucose (UA) Negative (Negative) 04/25/19 19:40 Urine Ketones Negative (Negative) 04/25/19 19:40 Urine Nitrite Negative (Negative) 04/25/19 19:40 Ur Leukocyte Esterase Negative (Negative) 04/25/19 19:40
--- NOTE | 2019-04-27 13:38 | History & Physical Report ---
Date of Service April 27, 2019 History of Present Illness Chief Complaint: RUQ pain Primary Care Provider: NO PCP For EGD Allergies Allergy/AdvReac Type Severity Reaction Status Date / Time No Known Allergies Allergy Verified 04/27/19 13:19 Home Medications Home Medications Medication Instructions Recorded Confirmed Type dicyclomine 10 mg PO QID 04/25/19 04/27/19 History famotidine 20 mg PO BID 04/25/19 04/27/19 History Past Med/Surg History Medical History Migraine No pertinent past medical history Family History Other No significant family history Social History Preferred Language: Eritrean Communication Ability: Effective Contact Center Professional Required: No Beliefs That Will Affect Care: None Current Living Situation: Parent Other Information That Helps Us Care for You: No Feels Safe at Home: Yes Safety Concerns: Feels Safe At This Time Smoking Status: Current every day smoker Tobacco Type: cigarettes and e- cigarettes ; Do You Dip or Chew Tobacco: No ; Second Hand Exposure: Yes ; Tobacco Cessation Education Requested by Patient: No Hx Alcohol Use: Yes Alcohol type: beer and hard liquor Physical Exam Constitutional: + obese Respiratory: normal respiratory effort Cardiovascular: Rate/Rhythm: regular rate and regular rhythm Gastrointestinal (Abdomen): Percussion/Palpation: + abdomen tender Skin: Multiple tattoos Results & Data Vital Signs (Past 12 Hours) Vital Signs Temp Pulse Resp BP Pulse Ox 04/27/19 13:09 37.0 C 58 L 16 117/49 L 96 04/27/19 07:01 36.9 C 55 L 18 120/83 99 Code Status & VTE Plan VTE Prophylaxis Plan VTE Prophylaxis will be ordered: No
[2019-04-27] MEDS ORDERED: SODIUM CHLORIDE 0.9% 1000ML 1,000 ML IV SCH (13:45)
[2019-04-27] MEDS ORDERED: fentaNYL citrate 100 MCG/2 ML VIAL ONE (14:24)
--- NOTE | 2019-04-27 14:37 | GI REPORT ---
Patient Name: Jessica Farrell Procedure Date: 04/27/2019 2:29 PM Date of : 1995 Admit Type: Inpatient Age: 23 Gender: Female Attending MD: Cedric Reyes MD Procedure: Upper GI endoscopy Providers: Cedric Reyes MD Referring MD: Referred Self Indications: Abdominal pain in the right upper quadrant Medicines: Fentanyl 50 micrograms IV, Propofol total dose 150 mg IV, Lidocaine 50 mg IV Complications: No immediate complications. Estimated Blood Loss: Estimated blood loss: none. Procedure: Pre-Anesthesia Assessment: - Prior to the procedure, a History and Physical was performed, and patient medications, allergies and sensitivities were reviewed. The patient's tolerance of previous anesthesia was reviewed. - The risks and benefits of the procedure and the sedation options and risks were discussed with the patient. All questions were answered and informed consent was obtained. After obtaining informed consent, the endoscope was passed under direct vision. Throughout the procedure, the patient's blood pressure, pulse, and oxygen saturations were monitored continuously. The Endoscope was introduced through the mouth, and advanced to the second part of duodenum. The upper GI endoscopy was accomplished without difficulty. The patient tolerated the procedure well. Findings: The Z-line was regular and was found 36 cm from the incisors. The examined esophagus was normal. The entire examined stomach was normal. The examined duodenum was normal. Impression: - Z-line regular, 36 cm from the incisors. - Normal esophagus. - Normal stomach. - Normal examined duodenum. - No specimens collected. Recommendation: - Return patient to [facility] for ongoing care. - Refer to a surgeon today. Cedric Reyes M.D. Cedric Reyes MD 04/27/2019 2:37:01 PM This report has been signed electronically. Note Initiated On: 04/27/2019 2:29 PM Number of Addenda: 0 I attest to the content of the Intraoperative Record and orders documented therein, exceptions below {[id number]}
--- NOTE | 2019-04-27 15:01 | Anesthesiology Progress Note ---
Date of Service April 27, 2019 Anesthesia Post Procedure Vital Signs Vital Signs: Temp Pulse Resp BP BP Pulse Ox 04/27/19 14:53 56 L 16 96/58 L 96 04/27/19 14:38 37.0 C 62 16 96/53 L 92 04/27/19 13:09 37.0 C 58 L 16 117/49 L 96 04/27/19 07:01 36.9 C 55 L 18 120/83 99 04/27/19 00:02 36.7 C 61 19 100/73 97 Pain Intensity Right Upper Abdomen: Pain Intensity: 6 Transfer of Care Handoff Completed per policy Notes Mental Status: alert / awake / arousable Patient Amnestic to Procedure: Yes Nausea / Vomiting: adequately controlled Pain: adequately controlled Airway Patency, RR, SpO2: stable & adequate BP & HR: stable & adequate Hydration State: stable & adequate Anesthetic Complications: no major complications apparent
--- NOTE | 2019-04-27 15:26 | Progress Note ---
DATE: 04/27/2019 SUBJECTIVE: Patient continued to have right upper quadrant pain. She underwent a biliary scan this morning which showed a poorly functioning gallbladder consistent with diseased gallbladder without stones. She subsequently underwent an EGD this afternoon in the endoscopy unit which was carried into the second part of the duodenum. The EGD was completely normal with no abnormalities found. IMPRESSION: The patient has a right upper quadrant pain with a diseased gallbladder on biliary scan. I would recommend surgical consult for consideration for laparoscopic cholecystectomy.
[2019-04-27] MEDS: VALACYCLOVIR HCL 500 MG TABLET PO SCH ×3 (15:33→20:26)
--- NOTE | 2019-04-27 15:37 | Family Medicine Progress Note ---
Date of Service April 27, 2019 Assessment & Plan (1) Abdominal pain: 23-year-old female was admitted on 25 April 2019 for intermittent abdominal pain. Abdominal pain, fever: Beginning around 03Sep. Multiple CT scans and a RUQ u/s only suggestive of ileus versus low-grade partial SBO, although she has not had any vomiting or constipation. Prior history of appendectomy. Briefly febrile but normal blood + urine labs. Question of early shingles (and PMH chickenpox), so was started on Valtrex 1 gm TID. However, no rash has ever been seen and the pain does not radiate into the flank. May be MSK in nature. Her HIDA scan today showed an abornmally low EF suggesting diseased gallbladder with plan for Lap Carrie. Mild right ovarian enlargement: As noted on her CT a/p. Admit blood hCG negative. Patient notes she may have had ovarian cyst in the past. Her lack of subjective and objective adenexal symptoms makes torsion less likely. Could consider pelvic ultrasound if symptom pattern changes. Tobacco use: Continue to encourage cessation. Code status: Full code. Diet: N.p.o. initially. DVT prophy: Lovenox. PT/OT: Deferred. Disbo: Admitted for observation to [facility]. (2) Ovarian enlargement, right: (3) Tobacco use: Supervising Physician Co-Signing Physician Notes Attending attestation Pt seen and examined in concert with Dr. Dick. In agreement with the documented findings as noted in the resident documentation with any exceptions or additions as noted here. Presently asymptomatic in bed. On examination, S1/S2 nl RRR no MCG. CTAB. Abd NT/ND BS+ve Abdominal pain, RUQ - concerning for cholecystic pain w/ abnormal HIDA - surgical consultation appreciated. Else see resident documentation as noted. Subjective Jessica reported continued pain to RUQ, same as previous. No new acute symptoms. Aware of plans for EGD and HIDA scan today. Physical Exam Constitutional: WD/WN, vitals as above Respiratory: no respiratory distress Cardiovascular: Rate/Rhythm: regular rate Musculoskeletal: Head/Neck/Chest: normocephalic and head atraumatic Skin: no rashes, warm and dry Neurologic: moves all extremities and awake Psychiatric: A+Ox3, euthymic affect Results & Data Vital Signs (Past 12 Hours) Vital Signs Temp Pulse Resp BP BP Pulse Ox 09/09/19 15:24 36.4 C L 57 L 18 99/68 L 98 04/27/19 15:08 48 L 16 107/58 L 97 04/27/19 14:53 56 L 16 96/58 L 96 04/27/19 14:38 37.0 C 62 16 96/53 L 92 04/27/19 13:09 37.0 C 58 L 16 117/49 L 96 04/27/19 07:01 36.9 C 55 L 18 120/83 99 PG Care Time/CCT Total # of Minutes Spent Total Time Spent with Patient: Total time spent is greater than 50% in coordination of care (as documented) at patient's floor/unit and/or counseling patient: Resident Activity Tracking Resident Involvement: Resident Care Provided Care Provided: Adult Hospital Medicine (1) Abdominal pain Abdominal location: unspecified location Qualified Code(s): R10.9 - Unspecified abdominal pain
--- NOTE | 2019-04-27 15:58 | Surgery Consultation ---
Date of Consultation April 27, 2019 Assessment & Plan (1) Biliary dyskinesia: She is interested in cholecystectomy during this admission. Will discuss with Dr. Hunter. Supervising Physician Co-Signing Physician Notes Patient seen and examined, labs and imaging reviewed, agree with above. 23-year-old female admitted with 1 week of right upper quadrant abdominal pain. Work-up is been overall unremarkable to date. Right upper quadrant ultrasound showed no stones. Her labs are normal. Her pain is not as bad today but it seems to wax and wane. She is tender to palpation in the right upper quadrant. HIDA scan was performed today and showed filling of the gallbladder but showed a gallbladder ejection fraction of 16%. She denies reproduction of symptoms after injection of the cholecystokinin. She understands that some patients do not get relief after cholecystectomy when diagnosed biliary dyskinesia. Discussed her options to include observation with outpatient follow-up and possible cholecystectomy versus surgery as an inpatient. The patient elects for surgery tomorrow. Plan for laparoscopic cholecystectomy with possible cholangiogram The risks the procedure were discussed to include but not limited to bleeding, infection, bile leak, retained stone, damage surrounding structures including common bile duct, need for future or more extensive surgery, failure to treat symptoms, and the risks of anesthesia N.p.o. after midnight History of Present Illness Attending Physician: Blake Cherry MD History of Present Illness 23 y/o female with severe RUQ pain that began on Saturday rather suddenly. Was seen at another ER and discharged home later that night. Her pain improved for a few days then returned on Saturday which led to her admission. No nausea or vomiting, no relationship to food. No history of food intolerance. Had normal EGD this morning, GI recommended eval for abnormal HIDA. History of laparoscopic appendectomy for ruptured appendix. Allergies Allergy/AdvReac Type Severity Reaction Status Date / Time No Known Allergies Allergy Verified 04/27/19 13:19 Home Medications Home Medications Medication Instructions Recorded Confirmed Type dicyclomine 10 mg PO QID 04/25/19 04/27/19 History famotidine 20 mg PO BID 04/25/19 04/27/19 History Patient History Medical History Migraine No pertinent past medical history Family History Other No significant family history Social History Preferred Language: Turkish Communication Ability: Effective Certified Adaptive Physical Educator Required: No Beliefs That Will Affect Care: None Current Living Situation: Parent Other Information That Helps Us Care for You: No Feels Safe at Home: Yes Safety Concerns: Feels Safe At This Time Smoking Status: Current every day smoker Tobacco Type: cigarettes and e- cigarettes ; Do You Dip or Chew Tobacco: No ; Second Hand Exposure: Yes ; Tobacco Cessation Education Requested by Patient: No Hx Alcohol Use: Yes Alcohol type: beer and hard liquor Review of Systems Constitutional: + fever (on admission, no symptoms); no chills, no fatigue and no anorexia Respiratory: + cough and + pain on inspiration (RUQ); no chest congestion Gastrointestinal: + abdominal pain; no bloating, no nausea and no vomiting Physical Exam 2 Constitutional: WD/WN, vitals as above Respiratory: normal respiratory effort, lungs clear to auscultation Cardiovascular: RRR, no murmur, no edema Gastrointestinal (Abdomen): Inspection/Auscultation: abdomen not distended Percussion/Palpation: + abdomen tender (minimal RUQ, also some costochondral) and abdomen soft Results & Data Vital Signs (Past 12 Hours) Vital Signs Temp Pulse Resp BP BP Pulse Ox 04/27/19 15:24 36.4 C L 57 L 18 99/68 L 98 04/27/19 15:08 48 L 16 107/58 L 97 04/27/19 14:53 56 L 16 96/58 L 96 04/27/19 14:38 37.0 C 62 16 96/53 L 92 04/27/19 13:09 37.0 C 58 L 16 117/49 L 96 04/27/19 07:01 36.9 C 55 L 18 120/83 99 Diagnostic Findings NM hepatobiliary EF HISTORY: Pain. Nausea. RUQ pain COMPARISON: None. TECHNIQUE: Immediately following the intravenous administration of 5 mCi Tc-99m Choletec, dynamic anterior abdominal imaging pre/post 1.1 mcg of Kinevac was performed. FINDINGS: The gallbladder ejection fraction following administration of Kinevac was 16 % (normal >35%). IMPRESSION: 1. No evidence for cystic duct obstruction. 2. Gallbladder ejection fraction calculated to be 16 %. This is considered abnormally low The above report was generated using voice recognition software. It may contain grammatical, syntax or spelling errors. Electronically signed by: Alphonse Ford M.D. 04/27/2019 11:04 AM PG Care Time/CCT Total # of Minutes Spent Total Time Spent with Patient: Total time spent is greater than 50% in coordination of care (as documented) at patient's floor/unit and/or counseling patient:
[2019-04-27] MEDS: KETOROLAC TROMETHAMINE 15 MG/ML VIAL IV PRN (22:36)
[2019-04-27] MEDS: ACETAMINOPHEN 325 MG TAB PO PRN (23:58)
[2019-04-28] MEDS: LACTATED RINGER'S 1,000 ML IV SCH ×3 (03:55→19:58)
--- NOTE | 2019-04-28 06:57 | Family Medicine Progress Note ---
Date of Service April 28, 2019 Assessment & Plan (1) Abdominal pain: 23-year-old female was admitted on 25 April 2019 for intermittent abdominal pain. Abdominal pain, fever: Beginning around 03Sep. Multiple CT scans and a RUQ u/s only suggestive of ileus versus low-grade partial SBO, although she has not had any vomiting or constipation. Prior history of appendectomy. Briefly febrile but normal blood + urine labs. Question of early shingles (and PMH chickenpox), so was started on Valtrex 1 gm TID. However, no rash has ever been seen and the pain does not radiate into the flank. May be MSK in nature. Her HIDA scan showed an abornmaly low EF suggesting diseased gallbladder with plan for Lap Mer today. Mild right ovarian enlargement: As noted on her CT a/p. Admit blood hCG negative. Patient notes she may have had ovarian cyst in the past. Her lack of subjective and objective adenexal symptoms makes torsion less likely. Could consider pelvic ultrasound if symptom pattern changes. Tobacco use: Continue to encourage cessation. Code status: Full code. Diet: N.p.o. initially. DVT prophy: Lovenox. PT/OT: Deferred. Disbo: Admitted for observation to [facility]. (2) Ovarian enlargement, right: (3) Tobacco use: Supervising Physician Co-Signing Physician Notes Attending attestation Pt seen and examined in concert with Dr. Dick. In agreement with the documented findings as noted in the resident documentation with any exceptions or additions as noted here. Mild RUQ pain in bed which exacerbates with palpation. Preoperatively, examination, S1/S2 nl RRR no MCG. Following pre-anesthesia examination, HR decreased to 30s to 40s asymptomatically. Pt reported FHx of bradyarrhythmia in mother w/ pacer placement. New bradycardia - cardiology consultation - telemetry monitoring. TSH/T4 for evaluation for underlying thyroid disease. Consider echocardiogram, but will await cards recommendations. Abdominal pain, RUQ - concerning for cholecystic pain w/ abnormal HIDA - surgical consultation - holding OR 2/2 new onset bradycardia as noted. Else see resident documentation as noted. Subjective Jessica is scheduled for lap mer today. She continues to have RUQ pain. No vomiting, diarrhea, fever or chills. Physical Exam Constitutional: WD/WN, vitals as above Eyes: + anicteric sclerae Respiratory: normal respiratory effort, lungs clear to auscultation no respiratory distress Cardiovascular: RRR, no murmur, no edema Gastrointestinal (Abdomen): Percussion/Palpation: + abdomen tender (mild RUQ) and abdomen soft; no guarding and abdomen not rigid Musculoskeletal: Head/Neck/Chest: normocephalic and head atraumatic Skin: no rashes, warm and dry Neurologic: moves all extremities and awake Psychiatric: A+Ox3, euthymic affect Results & Data Vital Signs (Past 12 Hours) Vital Signs Temp Pulse Resp BP Pulse Ox 04/27/19 23:37 36.7 C 52 L 16 93/60 L 98 PG Care Time/CCT Total # of Minutes Spent Total Time Spent with Patient: Total time spent is greater than 50% in coordination of care (as documented) at patient's floor/unit and/or counseling patient: Resident Activity Tracking Resident Involvement: Resident Care Provided Care Provided: Adult Hospital Medicine (1) Abdominal pain Abdominal location: unspecified location Qualified Code(s): R10.9 - Unspecified abdominal pain
[2019-04-28 07:17] LABS: INR 1.1 (0.9-1.1); Prothrombin Time 10.9 Seconds (9.0-12.0)
--- NOTE | 2019-04-28 07:47 | Anesthesiology Progress Note ---
Date of Service April 28, 2019 Anesthesia Post Procedure Vital Signs Vital Signs: Temp Pulse Resp BP BP Pulse Ox 04/28/19 07:27 36.7 C 68 15 98/60 L 96 04/27/19 23:37 36.7 C 52 L 16 93/60 L 98 04/27/19 18:54 36.7 C 69 19 103/58 L 98 04/27/19 17:27 36.6 C 62 19 102/67 98 04/27/19 16:31 36.8 C 58 L 18 105/68 100 04/27/19 16:02 36.6 C 56 L 19 103/66 100 04/27/19 15:24 36.4 C L 57 L 18 99/68 L 98 04/27/19 15:08 48 L 16 107/58 L 97 04/27/19 14:53 56 L 16 96/58 L 96 04/27/19 14:38 37.0 C 62 16 96/53 L 92 04/27/19 13:09 37.0 C 58 L 16 117/49 L 96 Pain Intensity Right Upper Abdomen: Pain Intensity: 0 Notes Mental Status: alert / awake / arousable and participated in evaluation Patient Amnestic to Procedure: Yes Nausea / Vomiting: adequately controlled Pain: adequately controlled Airway Patency, RR, SpO2: stable & adequate BP & HR: stable & adequate Hydration State: stable & adequate Anesthetic Complications: no major complications apparent
[2019-04-28] MEDS: VALACYCLOVIR HCL 500 MG TABLET PO SCH ×3 (07:56→19:49)
[2019-04-28] MEDS: ENOXAPARIN INJ 40 MG/0.4 ML SYR SQ SCH (07:56)
[2019-04-28] MEDS: KETOROLAC TROMETHAMINE 15 MG/ML VIAL IV PRN ×2 (08:00→19:49)
[2019-04-28] MEDS ORDERED: BUPIVACAINE 0.5 % 5 MG/1 ML MPF 30ML VIAL ONE (13:38)
[2019-04-28] MEDS ORDERED: ONDANSETRON INJ 2 MG/ML 2 ML VIAL ONE (13:43)
[2019-04-28] MEDS ORDERED: GLYCOPYRROLATE 0.2 MG/ML VIAL ONE (13:43)
[2019-04-28] MEDS ORDERED: SUCCINYLCHOLINE CHLORIDE 20 MG/ML 10 ML VIAL ONE (13:43)
[2019-04-28] MEDS ORDERED: NEOSTIGMINE METHYLSULFATE 5 MG/5 ML SYR ONE (13:43)
[2019-04-28] MEDS ORDERED: PROPOFOL IV EMULSION 10 MG/ML 20 ML VIAL IV ONE (13:43)
[2019-04-28] MEDS ORDERED: PHENYLEPHRINE HCL 10 MG/ML VIAL ONE (13:43)
[2019-04-28] MEDS ORDERED: DEXAMETHASONE SOD INJ 4 MG/ML VIAL ONE (13:43)
[2019-04-28] MEDS ORDERED: ePHEDrine sulfate 50 MG/ML AMP ONE (13:43)
[2019-04-28] MEDS ORDERED: LIDOCAINE HCL 2% 2 ML VIAL/AMP(20MG/ML) INFIL ONE (13:43)
[2019-04-28] MEDS ORDERED: fentaNYL citrate 100 MCG/2 ML VIAL ONE (13:44)
[2019-04-28] MEDS ORDERED: MIDAZOLAM HCL 1 MG/ML 2ML VIAL ONE (13:44)
--- NOTE | 2019-04-28 14:14 | Surgery Progress Note ---
Date of Service April 28, 2019 Assessment & Plan (1) Biliary dyskinesia: 23 y/o female with biliary dyskinesia vs. chronic cholecystitis. New onset bradycardia with mother with heart block. After discussion with anesthesia and patient, decision has been made to delay surgery for further workup. Will consult cards. Surgery may be done as outpatient. May advance diet. Present on Admission?: Yes (2) Bradycardia: Present on Admission?: No Subjective 23 y/o Female admitted with abdominal pain, HIDA shows biliary dyskinesia vs chronic cholecystitis. In pre op has bradycardia to 30's, mother had pacemaker at age 32. Minimal pain at this time. Physical Exam Constitutional: WD/WN, vitals as above Eyes: PERRL, conjunctivae normal, anicteric sclerae ENMT: external ear and nose normal, oropharynx normal Neck: trachea midline, no thyromegaly Respiratory: normal respiratory effort, lungs clear to auscultation Cardiovascular: Rate/Rhythm: regular rhythm and + bradycardic Gastrointestinal (Abdomen): Percussion/Palpation: + abdomen tender (RUQ); no guarding, abdomen not rigid and no hepatosplenomegaly Musculoskeletal: no cyanosis or clubbing, extremities motor strength 5/5 Skin: no rashes, warm and dry Neurologic: PERRL, EOMI, accommodation nl, no face palsy, no dysarthria Psychiatric: A+Ox3, euthymic affect Lymphatic: no cervical or axillary lymphadenopathy Results & Data Vital Signs (Past 12 Hours) Vital Signs Temp Pulse Resp BP BP Pulse Ox 04/28/19 13:27 36.6 C 39 L 16 106/47 L 98 04/28/19 07:27 36.7 C 68 15 98/60 L 96 PG Care Time/CCT Total # of Minutes Spent Total Time Spent with Patient: Total time spent is greater than 50% in coordination of care (as documented) at patient's floor/unit and/or counseling patient:
--- NOTE | 2019-04-28 14:35 | Anesthesiology Progress Note ---
Date of Service April 28, 2019 Subjective On arrival to preop for planned lap mer, patients heart rate was noted to be in the 30s. EKG was ordered and showed marked sinus bradycardia with premature atrial complexes. Patient denied symptoms of SOB, chest pain, syncope or presyncope. She did state that she had a period a few years ago when she was constantly passing out, but that cardiac work-up at that time was negative. She also reports that she has a strong family history of heart problems and that her mother needed a pacemaker at 32. Patients heart rate remained in the 30s for about 45 minutes and multiple tracings were printed during that time. At 1355 the patient was given 0.2 mg of glycopyrolate by myself. Heart rate increased to the mid 40s with glyco (minimal response) and tracing showed p waves with varying morphology and SC intervals. There were also at least 2 observed p waves without subsequent QRS complexes on telemetry. I discussed the case with Dr. Hunter and the patient and the decision was made to postpone the planned procedure until after she can be evaluated by cardiology and/or medicine, especially in light of her strong family history. The patients family medicine team was notified of the change in plans. After this decision was made at about 1420, the patients heart rate suddenly increased back to the 60s/70s with a normal EKG tracing. Based on her current EKG, patient is safe to go back to her regular floor room right now for further medical follow-up. Nickie Hurd MD, PhD Anesthesiologist Physical Exam Vital Signs: Last Vital Signs Temp 36.6 C 04/28/19 13:27 Pulse 39 L 04/28/19 13:27 Resp 16 04/28/19 13:27 BP 106/47 L 04/28/19 13:27 Pulse Ox 98 04/28/19 13:27 Results & Data Medications Administered Acetaminophen (Tylenol) 650 mg PO Q4H PRN PRN Reason: pain/fever Stop: 05/25/19 22:04 Last Admin: 04/27/19 23:58 Dose: 650 mg Documented by: [id number] Admin: 04/26/19 13:26 Dose: 650 mg Documented by: [id number] Admin: 04/26/19 00:51 Dose: 650 mg Documented by: [id number] Diclofenac Sodium (Voltaren 1% Top) 1 appln EXT BID PRN PRN Reason: Pain Stop: 05/25/19 20:59 Last Admin: 04/25/19 20:27 Dose: 1 appln Documented by: [id number] Enoxaparin Sodium (Lovenox) 40 mg SQ QAM [facility] Stop: 05/27/19 08:59 Last Admin: 04/28/19 07:56 Dose: 40 mg Documented by: [id number] Admin: 04/27/19 11:52 Dose: 40 mg Documented by: [id number] Lactated Ringer's (Lr) 1,000 mls @ 120 mls/hr IV .Q8H20M [facility] Stop: 05/25/19 22:04 Last Admin: 04/28/19 11:36 Dose: 120 mls/hr Documented by: [id number] Infusion: 04/28/19 11:36 Dose: 120 mls/hr Documented by: [id number] Admin: 04/28/19 03:55 Dose: 120 mls/hr Documented by: [id number] Infusion: 04/28/19 03:55 Dose: 120 mls/hr Documented by: [id number] Infusion: 04/27/19 22:02 Dose: 120 mls/hr Documented by: [id number] Admin: 04/27/19 19:46 Dose: 120 mls/hr Documented by: [id number] Infusion: 04/27/19 16:08 Dose: 120 mls/hr Documented by: [id number] Admin: 04/27/19 07:48 Dose: 120 mls/hr Documented by: [id number] Infusion: 04/27/19 07:26 Dose: 120 mls/hr Documented by: [id number] Admin: 04/26/19 23:06 Dose: 120 mls/hr Documented by: [id number] Infusion: 04/26/19 22:29 Dose: 120 mls/hr Documented by: [id number] Admin: 04/26/19 14:09 Dose: 120 mls/hr Documented by: [id number] Infusion: 04/26/19 14:09 Dose: 120 mls/hr Documented by: [id number] Admin: 04/26/19 06:21 Dose: 120 mls/hr Documented by: [id number] Infusion: 04/26/19 06:21 Dose: 120 mls/hr Documented by: [id number] Admin: 04/25/19 22:24 Dose: 120 mls/hr Documented by: [id number] Ketorolac Tromethamine (Toradol) 15 mg IV Q6H PRN PRN Reason: Pain Stop: 04/30/19 22:04 Last Admin: 04/28/19 08:00 Dose: 15 mg Documented by: [id number] Admin: 04/27/19 22:36 Dose: 15 mg Documented by: [id number] Admin: 04/26/19 20:53 Dose: 15 mg Documented by: [id number] Admin: 04/26/19 11:08 Dose: 15 mg Documented by: [id number] Admin: 04/26/19 05:22 Dose: 15 mg Documented by: [id number] Admin: 04/25/19 22:41 Dose: 15 mg Documented by: [id number] Valacyclovir HCl (Valtrex) 1,000 mg PO TID [facility] Stop: 05/02/19 22:04 Last Admin: 04/28/19 11:38 Dose: Not Given Documented by: [id number] Admin: 04/28/19 07:56 Dose: Not Given Documented by: [id number] Admin: 04/27/19 20:26 Dose: Not Given Documented by: [id number] Admin: 04/27/19 15:34 Dose: Not Given Documented by: [id number] Admin: 04/27/19 15:33 Dose: 1,000 mg Documented by: [id number] Admin: 04/26/19 20:51 Dose: 1,000 mg Documented by: [id number] Admin: 04/26/19 13:21 Dose: 1,000 mg Documented by: [id number] Admin: 04/26/19 07:17 Dose: 1,000 mg Documented by: [id number] Admin: 04/25/19 23:48 Dose: 1,000 mg Documented by: [id number]
--- NOTE | 2019-04-28 16:17 | Progress Note ---
DATE: 04/28/2019 SUBJECTIVE: The patient has abnormal biliary scan with right upper quadrant pain and negative EGD. She was initially scheduled for a cholecystectomy today, but it was postponed due to bradycardia with heart rate in the 30s. Her mother had a pacemaker placed in her 30s as well, so plan is to defer the cholecystectomy for now and evaluate her heart further before proceeding with cholecystectomy. PHYSICAL EXAMINATION: GENERAL: The patient appears in no acute distress. She has less abdominal pain today. VITAL SIGNS: Blood pressure is 119/80, pulse 46, respirations 20, temperature 36.7, O2 sat 98. Liver profile is normal. IMPRESSION: The patient has cholecystitis based on biliary scan with bradycardia. Cardiac evaluation will ensue at this point and cholecystectomy to follow once stabilized. I have no further GI input at this time. We will sign off. Please contact if any further input from GI is needed.
--- NOTE | 2019-04-28 19:58 | Cardiology Consultation ---
Date of Consultation April 28, 2019 Assessment & Plan (1) Bradycardia: The patient has a well-documented sinus bradycardia. There may be periods of a competing junctional rhythm as well. This is unusual in her demographic. While significant bradycardia of this nature can be seen in well-trained athletes, she does not fit that profile. The etiology of her sinus node dysfunction is unclear. She does report having a mother with a pacemaker at an early age, but her mother may also have other heart disease and is known to have other forms of vascular disease. There are some rare hereditary forms of sinus node dysfunction associated with certain genes. I do not believe genetic t esting is warranted in this case. We will perform some serologic testing in order to exclude an endocrinologic abnormality or possibly Lyme's disease. We will perform some of the baseline testing in order to exclude some forms of infiltrative heart disease. We will obtain an echocardiogram which may help guide us in that regard as well. I do not believe she currently has an indication for a permanent pacemaker. While she has well-documented bradycardia, she does not appear to have symptoms associated with arrhythmia. She does not have symptoms consistent with chronotropic incompetence. I did ask her to walk around the [place] later this evening in order to gauge her heart rate response and monitor her rhythm. In the absence of symptoms we likely will simply monitor her over time. History of Present Illness Attending Physician: Blake Cherry MD History of Present Illness The patient is a 23-year-old woman without a known history of cardiac disease who was admitted with complaints of abdominal discomfort. Evaluation suggested gallbladder disease and she was scheduled to undergo a laparoscopic cholecystectomy today. However, immediately prior to her planned surgery the patient was noted to have bradycardia. An EKG performed in the preoperative area revealed sinus bradycardia. She was reported to have slow heart rates on a monitor and possibly an episode of heart block. The patient was administered an anticholinergic without notable change in her heart rate. The patient did not report any symptoms during this episode. She appeared to be conscious and aware of her surroundings. She did not report symptoms of lightheadedness, dizziness or presyncope. The patient states that she was quite comfortable during this episode he did not report much in the way of abdominal discomfort. In general, the patient is a sedentary individual. She does take care of a young child and is "always on the go". However, she does not participate in routine exercise. She does not report episodes of extreme activity. However, she does not appear to have symptoms associated with routine activity. She denies any limiting dyspnea or symptoms associated with exercise. She denies dizziness or lightheadedness. She does have a remote history of syncopal episode which occurred during high school. This was approximately 4 years ago. Those events produced other symptoms and had a notable prodrome more consistent with vagally mediated syncope. The patient did report one episode of syncope while she was approximately 1 year ago. She did have some prodrome during that episode. Afterwards she continued to feel somewhat dizzy and l ightheaded. Allergies Allergy/AdvReac Type Severity Reaction Status Date / Time No Known Allergies Allergy Verified 04/27/19 13:19 Home Medications Home Medications Medication Instructions Recorded Confirmed Type dicyclomine 10 mg PO QID 04/25/19 04/27/19 History famotidine 20 mg PO BID 04/25/19 04/27/19 History Patient History Medical History Migraine No pertinent past medical history Family History Other No significant family history Social History Preferred Language: Hebrew Communication Ability: Effective Area Representative Required: No Beliefs That Will Affect Care: None Current Living Situation: Parent Other Information That Helps Us Care for You: No Feels Safe at Home: Yes Safety Concerns: Feels Safe At This Time Smoking Status: Current every day smoker Tobacco Type: cigarettes and e- cigarettes ; Do You Dip or Chew Tobacco: No ; Second Hand Exposure: Yes ; Tobacco Cessation Education Requested by Patient: No Hx Alcohol Use: Yes Alcohol type: beer and hard liquor Review of Systems Review of Systems: All systems reviewed & are unremarkable except as noted in HPI & below She does not appear to have abdominal pain currently. She was eating without difficulty. The abdominal sensitivity which she had at the time of admission also seems to have resolved. Physical Exam Physical Exam: She is alert and oriented x3. Mood affect appear normal. She answered all questions appropriately. HEENT: Sclerae are anicteric. Pupils are equal and reactive to light and accommodation. Extraocular movements were intact. Neuro: Cranial nerves intact Neck: Examination of the submandibular region did not reveal any significant lymphadenopathy. Carotids are palpable bilaterally and free of bruits on auscultation. There was no evidence of jugular venous distention. The thyroid was not enlarged. Lungs: Lungs are clear to auscultation bilaterally. There are no rales wheezes or rhonchi. She has normal respiratory effort without use of accessory muscles. There is normal pulmonary excursion. Cardiac: The rhythm was regular but slow. S1 and S2 were normal. There are no murmurs on examination. The PMI was not markedly displaced on palpation. Extremities: Patient has bilateral radial pulses that are equal in intensity. There is no evidence cyanosis or clubbing. There was no evidence of significant peripheral edema bilaterally. Skin: There are no rashes noted on examination today. Results & Data Vital Signs (Past 12 Hours) Vital Signs Temp Pulse Resp BP BP Pulse Ox 04/28/19 19:09 36.6 C 45 L 18 121/77 99 04/28/19 16:16 36.4 C L 39 L 16 107/65 99 04/28/19 15:00 36.7 C 46 L 20 119/80 98 04/28/19 13:27 36.6 C 39 L 16 106/47 L 98 Laboratory Results Abnormal Lab Results 04/28/19 06:50 PT 10.9 INR 1.1 Diagnostic Findings An x-ray obtained at the time of admission did not reveal any acute cardiopulmonary process An outside CT scan of the chest did not reveal any notable cardiac abnormality or evidence of aortic dilation. ECG Indication: bradycardia Rhythm: sinus bradycardia PG Care Time/CCT Total # of Minutes Spent Total Time Spent with Patient: Total time spent is greater than 50% in coordination of care (as documented) at patient's floor/unit and/or counseling patient:
[2019-04-28] MEDS: ACETAMINOPHEN 325 MG TAB PO PRN (23:57)
[2019-04-29] MEDS: LACTATED RINGER'S 1,000 ML IV SCH (04:22)
--- NOTE | 2019-04-29 06:45 | Family Medicine Progress Note ---
Date of Service April 29, 2019 Assessment & Plan (1) Abdominal pain: 23-year-old female was admitted on 25 April 2019 for intermittent abdominal pain. Abdominal pain, fever: Beginning around 03Sep. Multiple CT scans and a RUQ u/s only suggestive of ileus versus low-grade partial SBO, although she has not had any vomiting or constipation. Prior history of appendectomy. Briefly febrile but normal blood + urine labs. Question of early shingles (and PMH chickenpox), so was started on Valtrex 1 gm TID. However, no rash has ever been seen and the pain does not radiate into the flank. May be MSK in nature. Her HIDA scan showed an abornmaly low EF suggesting diseased gallbladder with plan for Lap Carrie today. Mild right ovarian enlargement: As noted on her CT a/p. Admit blood hCG negative. Patient notes she may have had ovarian cyst in the past. Her lack of subjective and objective adenexal symptoms makes torsion less likely. Could consider pelvic ultrasound if symptom pattern changes. Tobacco use: Continue to encourage cessation. Code status: Full code. Diet: N.p.o. initially. DVT prophy: Lovenox. PT/OT: Deferred. Disbo: Admitted for observation to [facility]. (2) Ovarian enlargement, right: (3) Tobacco use: Physical Exam Constitutional: WD/WN, vitals as above Eyes: + anicteric sclerae Respiratory: normal respiratory effort, lungs clear to auscultation no respiratory distress Cardiovascular: RRR, no murmur, no edema Rate/Rhythm: regular rate Gastrointestinal (Abdomen): Percussion/Palpation: + abdomen tender (mild RUQ) and abdomen soft; no guarding and abdomen not rigid Musculoskeletal: Head/Neck/Chest: normocephalic and head atraumatic Skin: no rashes, warm and dry Neurologic: moves all extremities and awake Psychiatric: A+Ox3, euthymic affect Results & Data Vital Signs (Past 12 Hours) Vital Signs Temp Pulse Pulse Resp BP BP Pulse Ox 04/29/19 04:05 36.9 C 78 18 115/72 94 04/28/19 23:47 36.7 C 49 L 20 113/74 99 04/28/19 23:38 42 L 04/28/19 19:09 36.6 C 45 L 18 121/77 99 PG Care Time/CCT Total # of Minutes Spent Total Time Spent with Patient: Total time spent is greater than 50% in coordination of care (as documented) at patient's floor/unit and/or counseling patient: (1) Abdominal pain Abdominal location: unspecified location Qualified Code(s): R10.9 - Uns pecified abdominal pain
[2019-04-29 07:18] LABS: Hemoglobin 11.4 g/dL (12.0-16.0); Mean Corpuscular Hgb Conc 32.6 g/dL (32-36); Mean Corpuscular Volume 89.1 fL (80-100); Mean Platelet Volume 10.1 fL (7.4-10.4); Platelet Count 243 K/uL (130-400); RDW Coefficient of Variation 14.3 % (11.5-14.5); RDW Standard Deviation 47.4 fL (36.4-46.3); Red Blood Count 3.93 M/uL (4.2-5.4); White Blood Count 7.83 K/uL (4.8-10.8)
[2019-04-29] MEDS: VALACYCLOVIR HCL 500 MG TABLET PO SCH (07:31)
[2019-04-29] MEDS: ENOXAPARIN INJ 40 MG/0.4 ML SYR SQ SCH (07:32)
[2019-04-29 07:55] LABS: Albumin Globulin Ratio 0.7 (0.9-2); Albumin Level 2.6 gm/dl (3.4-5.0); BUN Creatinine Ratio 8.9 (10-20); Bilirubin,Total 0.1 mg/dl (0.2-1); Calcium 8.4 mg/dl (8.5-10.1); Creatinine Clr Calc Pharmacy 141.4 ml/min; Est GFR (African American) 145.3; Est GFR (Non-African American) 125.4; Globulin 3.9 gm/dl (2.5-4.0); Magnesium 1.9 mg/dl (1.8-2.4); Potassium 3.9 mmol/L (3.5-5.1); Total Protein 6.5 gm/dl (6.4-8.2)
[2019-04-29 08:01] LABS: Ferritin 41.5 ng/ml (8-388); Phosphorus 3.2 mg/dl (2.5-4.9); Thyroid Stimulating Hormone 5.6 uIu/ml (0.300-4.500)
[2019-04-29 08:14] LABS: T4 Free Thyroxine 0.86 ng/dl (0.8-1.6)
[2019-04-29 08:19] LABS: Lyme Ab IgG w/WB Rflx Negative (Negative); Lyme Ab IgM w/WB Rflx Negative (Negative)
[2019-04-29 08:30] LABS: Basophils # (auto) 0.04 K/uL (0-0.2); Basophils % (auto) 0.5 %; Eosinophils # (auto) 0.23 K/uL (0-0.5); Eosinophils % (auto) 2.9 %; Immature Granulocytes # (auto) 0.02 K/uL (0.00-0.02); Immature Granulocytes % (auto) 0.3 %; Lymphocytes # (auto) 2.57 K/uL (1.2-3.4); Lymphocytes % (auto) 32.8 %; Monocytes # (auto) 0.67 K/uL (0.11-0.59); Monocytes % (auto) 8.6 %; Neutrophils % (auto) 54.9 %
--- NOTE | 2019-04-29 10:52 | Discharge Summary ---
Date of Service April 29, 2019 Admission HPI Per Admitting Provider Chief Complaint: Abdominal Pain Primary Care Provider: NO PCP Jessica is a 23-year-old female with no significant past medical history who presented to [facility] due to a 5-day history of intermittent abdominal pain. She states that this pain started suddenly Saturday night around 9 PM, when she bent down to bead picker her cell phone from the floor. She states that since then, she has had waves of pain in the right side of abdomen. She describes the pain as sharp, 10 out of 10 in intensity, so severe that it results in her feeling like she has chills. She also becomes nauseous and dizzy with the pain. She states that she can have 3 to 4 minutes of relief between episodes of pain. She also endorses URI symptoms that began the same day. She states that she has nasal congestion, a productive cough, and generalized myalgias. Yesterday, she states that she did not have any pain, however it returned last night. She states that an episode of coughing brought it on. She denies having any history of this type of pain in the past. Prior to Saturday, she had been feeling well. She denies any episodes of vomiting. She states that her last bowel movement was last night, and was normal. She has had chickenpox in the past. She is up-to-date with her immunizations. Her mother has had shingles in the past, however this was 11 years ago. She has had no contact with any person with shingles. Past medical history: Nil of note Past surgical history: Appendectomy, due to ruptured appendix Medications: vitamin Allergies: No known drug allergies Family history: Mother w/hx of cholecystectomy Social history: Has been smoking up to half a pack of cigarettes a day since age 17. Drinks alcohol occasionally, last drink was 2 beers last night. No recent alcohol binges. No recreational drug use. Allergies Principal Diagnosis Cholecystitis; Bradycardia Discharge Exam Constitutional WD/WN, vitals as above comfortable and + combative Eyes + anicteric sclerae and EOM intact bilaterally Neck normal visual inspection and trachea midline Respiratory normal respiratory effort, lungs clear to auscultation Cardiovascular Rate/Rhythm: regular rhythm and + bradycardic Extremities: no pedal edema Gastrointestinal (Abdomen) Percussion/Palpation: abdomen soft; abdomen nontender, no guarding and abdomen not rigid Musculoskeletal Head/Neck/Chest: normocephalic and head atraumatic Skin no rashes, warm and dry Neurologic moves all extremities and awake Psychiatric A+Ox3, euthymic affect Discharge Data Allergies Allergy/AdvReac Type Severity Reaction Status Date / Time No Known Allergies Allergy Verified 04/27/19 13:19 Consultations 04/25/19 19:28 ED Decision to Admit Stat 04/26/19 11:57 Consult Gastroenterology Routine 04/27/19 14:34 Consult General Surgery Routine 04/28/19 14:29 Consult Cardiology Routine Procedures Performed Operation Date: 04/27/19 09:30 Actual Procedures p Esophagogastroduodenoscopy - Cedric Reyes No acute findings Operation Date: 04/28/19 12:45 <No data on this case meets the specified criteria> suspended becaues of bradycardia workup and then patient electing to have done as outpatient. Ordered Studies 04/25/19 18:05 CT abd pelvis IV con only Stat 04/25/19 19:28 US gallbladder Stat Hospital Course (1) Abdominal pain: 23-year-old female was admitted on 25 April 2019 for intermittent abdominal pain. Abdominal pain, fever: Beginning around 03Sep. Multiple CT scans and a RUQ u/s only suggestive of ileus versus low-grade partial SBO, although she has not had any vomiting or constipation. Prior history of appendectomy. Briefly febrile but normal blood + urine labs. Question of early shingles (and PMH chickenpox), so was started on Valtrex 1 gm TID. However, no rash has ever been seen and the pain does not radiate into the flank, and this was discontinued at discharge. Her HIDA scan showed an abnormal low EF suggesting diseased gallbladder with plan for Lap Carrie on 04/28 but this was suspended because of Bradycardia on pre- op workup in the 40s which required further workup. After workup showed no acute cardiac findings, patient elects to have Lap Carrie performed as outpatient. She notes that this is her week to have custody of her child and that she would like to go home to spend her last day with him as he goes to his biological father's grandparent's in [place] tomorrow. Bradycardia: Cardiac workup including echocardiogram did not show any acute findings. She was asymptomatic. [facility] offers to have patient follow up with them on outpt basis. Mild right ovarian enlargement: As noted on her CT a/p. Admit blood hCG negative. Patient notes she may have had ovarian cyst in the past. Her lack of subjective and objective adenexal symptoms makes torsion less likely. Could consider pelvic ultrasound if symptom pattern changes. Tobacco use: Continue to encourage cessation. Code status: Full code. Diet: N.p.o. initially. DVT prophy: Lovenox. PT/OT: Deferred. Disbo: Admitted for observation to [facility]. (2) Ovarian enlargement, right: (3) Tobacco use: Total Time Total Time Spent Total Time Spent (In Minutes): 40 Total Time Includes: Examination of the Patient, Discharge Planning, Medication Reconciliation and Communication With Other Providers Discharge Plan Discharge Items Patient Disposition: Home - Self-Care Reason For Visit: ABDOMINAL PAIN Discharge Diagnosis: Cholecystitis; Gallbladder Dyskinesia; Bradycardia Activity: Resume your previous activity Non-emergency contact: Primary Care Provider Call non-emergency contact if: your symptoms worsen, your pain is worsening and you have a fever Follow-up/Referrals: Timmy Hunter, , [facility] [Physician] - (Please call the office to schedule a follow up appointment within 1-2 weeks. You may call the office sooner if you have any questions/concerns.) Max Torres MD [Resident] - 05/04/19 10:30 am (Please, follow up with Dr. Max Torres on SaturdayMay 04 at 10:30 am. *The office is located in [address] of [facility]. This is the big building next to this [facility]. If you need to change this appointment, call the office at [phone].) Diet: Low Fat Addtl Attending Provider Instructions: Please call to schedule outpatient Laproscopic Cholecystectomy (surgical removal of your gallbladder). This is recommendation to treat your symptoms. Your gallbladder is not lyn as it should called (biliary dyskinesia). Also, you were found to have asymptomatic Bradycardia (low heart rate). You had a cardiac workup to ensure that did not show any pathology or disease of your heart. If you are asymptomatic, there is no recommendations for pacemaker placement. [facility] would be happy to see you as an outpatient for follow up. If you experience dizziness, passing out, chest pain, please call your primary care physician and/or go to Emergency Department for treatment evaluation/call 911. Your iron levels were found to be low. Please follow up with your Primary Care Physician about starting Iron supplementation. Pending Studies at Discharge: No Stand-Alone Forms: My [facility] Medications and DC Order Prescriptions: Continued dicyclomine 10 mg capsule 10 mg PO QID RF: 0 famotidine 20 mg tablet 20 mg PO BID RF: 0 Discharge Orders: Discharge Order (Routine); Ordered 04/29/19 Ordered By: Avtar Dick Admission Data Admit Date/Time: 04/27/19 15:27 Attending Provider: Blake Cherry Admit Provider: Valeri Lizarraga Primary Care Provider: PCP,NO Other Providers: Michael Pillai ; Rito Fabian ; Colby Reed ; Blake Vargas Other Interventions: Discharge Summary Assessment (RN) Last Done: 04/29/19 13:35 DC Date/Time DO NOT enter until pt leaves facility: 04/29/19 14:31 Supervising Physician Co-Signing Physician Notes Attending attestation Pt seen and examined in concert with Dr. Dick. In agreement with the documented findings as noted in the resident documentation with any exceptions or additions as noted here. Mild aching right upper quadrant pain which is improved from previous with good POI without nausea and nl BM. Reports no f/c. Mild RUQ TTP on examination w/ nl BS throughout. S1/S2 nl RRR no MCG. CTAB. Abdominal pain w/ GB dyskinesia - after discussion, outpatient elective lap carrie with close follow up and precautions re: worsening/changing sx New onset bradycardia - cardiology consultation - sinus verónica with no overt structural findings, follow w/ PCP Else see resident documentation as noted. Resident Activity Tracking Resident Involvement: Resident Care Provided Care Provided: Adult Hospital Medicine
[2019-04-29] MEDS: ACETAMINOPHEN 325 MG TAB PO PRN (11:13)
--- NOTE | 2019-04-29 13:32 | Cardiology Progress Note ---
Date of Service April 29, 2019 Assessment & Plan (1) Bradycardia: She continues to have some periods of bradycardia. There were reports by the door technician of a competing junctional rhythm, but I could not find these actual tracings. However, she was ambulatory last evening with a reasonable rise in her heart rate. She is not appear to have symptoms associated with bradycardia. This appears to be sinus node dysfunction that is slightly out of the ordinary for someone of her demographic. I do suspect she has some intrinsic sinus node disease, but this is a very stable and benign finding currently. It is possible that this will be progressive over time and in the setting of significant symptoms associated with bradycardia or chronotropic incompetence could discuss the option of a pacemaker. Her serum studies and echocardiogram were normal. She does have a very mildly e levated TSH but I do not believe this played a big role in her bradycardia. I doubt that she has an infiltrative process such as amyloidosis or sarcoidosis. She is interested in going home and I think that is reasonable. I can see her back in the clinic to discuss symptoms and prepare her for surgery if she is electing to proceed in that direction. Subjective This morning the patient feels well. She was ambulatory last evening did not report symptoms of exercise intolerance, dyspnea or dizziness. Her abdominal discomfort appears to have improved as well. She was anxious to go home. Review of Systems Review of Systems: Per HPI Physical Exam Physical Exam: She is alert and oriented x3. Mood affect appear normal. She answered all questions appropriately. HEENT: Sclerae are anicteric. Pupils are equal and reactive to light and accommodation. Extraocular movements were intact. Neuro: Cranial nerves intact Lungs: Lungs are clear to auscultation bilaterally. There are no rales wheezes or rhonchi. She has normal respiratory effort without use of accessory muscles. There is normal pulmonary excursion. Cardiac: The rhythm was regular. S1 and S2 were normal. There are no murmurs on examination. The PMI was not markedly displaced on palpation. Results & Data Vital Signs (Past 12 Hours) Vital Signs Temp Pulse Pulse Resp BP BP Pulse Ox 04/29/19 11:11 36.9 C 67 18 109/70 97 04/29/19 08:00 47 L 04/29/19 07:27 36.8 C 42 L 18 104/65 96 04/29/19 04:05 36.9 C 78 18 115/72 94 Laboratory Results Abnormal Lab Results 04/29/19 04/29/19 04/29/19 06:51 06:51 06:51 WBC 7.83 RBC 3.93 L Hgb 11.4 L Hct 35.0 L MCV 89.1 MCH 29.0 MCHC 32.6 RDW Std Deviation 47.4 H RDW Coeff of Kamila 14.3 Plt Count 243 MPV 10.1 Immature Gran % (Auto) 0.3 Neut % (Auto) 54.9 Lymph % (Auto) 32.8 Whitman % (Auto) 8.6 Eos % (Auto) 2.9 Baso % (Auto) 0.5 Immature Gran # (Auto) 0.02 Neut # (Auto) 4.30 Lymph # (Auto) 2.57 Whitman # (Auto) 0.67 H Eos # (Auto) 0.23 Baso # (Auto) 0.04 Sodium 142 Potassium 3.9 Chloride 110 H Carbon Dioxide 28 Anion Gap 4.0 BUN 6 L Creatinine 0.66 Est Cr Clr Drug Dosing 141.4 Est GFR ( Amer) 145.3 Est GFR (Non-Af Amer) 125.4 BUN/Creatinine Ratio 8.9 L Glucose 91 Calcium 8.4 L Phosphorus 3.2 Magnesium 1.9 Iron 26 L Ferritin 41.5 Total Bilirubin 0.1 L AST 26 ALT 43 Alkaline Phosphatase 75 Total Protein 6.5 Albumin 2.6 L Globulin 3.9 Albumin/Globulin Ratio 0.7 L TSH 5.600 H Free T4 0.86 Lyme Disease IgG Ab Negative Lyme Disease IgM Ab Negative PG Care Time/CCT Total # of Minutes Spent Total Time Spent with Patient: Total time spent is greater than 50% in coordina tion of care (as documented) at patient's floor/unit and/or counseling patient:
== END 2019-04-29 14:31 | disposition home or self-care (01) | DRG 446 ==
LOC: ED 17:59 → 3W 17:59 → SUATTDRO 20:25 → 3W 21:39 → 2N 04-28 14:31